=== PATIENT | male | born 1935 | race Caucasian/White ===

== ENCOUNTER 2017-12-10 20:38 | Observation (INO) ==
[2017-12-10 21:31] VITALS: TEMP 97.6
--- NOTE | 2017-12-10 23:08 | ED ---
HPI General Chief complaint: Shortness of Breath/Dyspnea Stated complaint: SOB/Phy sent Time Seen by Provider: 12/10/17 22:28 Source: patient Limitations: no limitations History of Present Illness HPI narrative: The patient is an 82 year old male who presents to the [facility] emergency department with a history of having sudden onset of dyspnea on exertion on Saturday. He reports that it has been associated with fatigue and difficulty getting out of bed throughout the entire weekend up until Saturday. He reports that he is also had associated heartburn sensation and left arm pain. He became concerned that this may be related to his heart, therefore he did call his leasing property manager office. His leasing property manager, Dr. Jorge Alberto Sr told him to immediately go to the emergency department. The patient reports that he has not taken his low-dose aspirin over the last couple of days because of forgetting. He denies having any chest pain. He denies having any nausea or vomiting. He reports having a sensation of being hot all the time, however he denies having any diaphoresis. The patient reports that he does have a history of coronary artery disease, however this is medically managed. He denies ever having a heart catheterization. His last stress test was reportedly 6 months ago. On review of systems otherwise, the patient denies having any known recent fevers, cough, congestion, neck pain, abdominal pain, diarrhea, urinary symptoms, or neurologic symptoms. Related Data Home Medications Medication Instructions Recorded Confirmed amlodipine 5 mg PO DAILY 12/10/17 12/10/17 atorvastatin 40 mg PO DAILY 12/10/17 12/10/17 escitalopram oxalate 5 mg PO DAILY 12/10/17 12/10/17 finasteride 5 mg PO DAILY 12/10/17 12/10/17 isosorbide mononitrate 30 mg PO DAILY 12/10/17 12/10/17 metoprolol succinate 50 mg PO DAILY 12/10/17 12/10/17 tizanidine 4 mg PO TID 12/10/17 12/10/17 Allergies Allergy/AdvReac Type Severity Reaction Status Date / Time No Known Allergies Allergy Verified 12/10/17 21:25 Review of Systems ROS Unobtainable All other systems reviewed negative except as stated in HPI PMFSH History History Provided By: Patient and Family Member Medical History Medical History Back fracture (Acute) CAD (coronary artery disease) (Acute) HTN (hypertension) (Acute) Hypercholesteremia (Acute) Surgical History Surgical History S/P surgical manipulation of ankle joint (Acute) Family History Family History Mother Pancreatic cancer Father Diabetes Social History Social History Second Hand Smoke Exposure: No Smoking Status: Never smoker How Often Do You Have a Drink Containing Alcohol: Monthly or less Recent Travel in [facility] within the Last 8 Weeks: No Recent Out of Country Travel within the Last 8 Weeks: No Exam Const General: cooperative, no acute distress and well developed Nutritional Appearance: well nourished Orientation: alert, awake and oriented x3 HENMT Head: normocephalic and atraumatic Nose: no nasal discharge and no epistaxis Mouth: moist mucous membranes Throat: posterior oropharynx normal and uvula midline Eyes Sclera: normal sclerae Pupils: PERRL Neck Neck: no meningeal signs, trachea midline and no JVD Resp Effort & Inspection: no use of accessory muscles Auscultation: clear to auscultation bilaterally Cardio Rate: regular rate Rhythm: regular rhythm Heart Sounds: no murmurs GI Inspection: non-distended Palpation: soft, no hepatosplenomegaly and nontender Auscultation: normal bowel sounds Back/Spine/Pelvis Back: no CVA tenderness Skin General: dry skin (warm) Neuro General: alert and awake Cranial Nerves: other (No facial asymmetry.) Speech: speech normal Motor: no movement abnormalities noted Extrem General: normal to inspection, no clubbing, no cyanosis and edema (Trace pedal edema.) Laterality: bilaterally Psych Mood: congruent mood Affect: normal affect Judgment: judgment good Course Reevaluation(s) Reevaluation #1: The patient was reexamined and was reportedly feeling improved. The patient was instructed regarding his laboratory results and imaging results. Consultations Consultation #1: The patient's case including history, pertinent physical examination findings, and laboratory studies were discussed with Dr. Eisenberg. It was agreed that the patient would be admitted to the hospitalist service. Initial Documented Vital Signs Temperature 97.6 F 12/10/17 21:26 Pulse Rate 74 12/10/17 21:26 Respiratory Rate 18 12/10/17 21:26 Blood Pressure 197/95 H 12/10/17 21:26 Pulse Oximetry 98 12/10/17 21:26 Last Documented Vital Signs Temperature 97.6 F 12/10/17 21:26 Pulse Rate 68 12/11/17 04:17 Respiratory Rate 16 12/11/17 04:17 Blood Pressure 156/84 H 12/11/17 04:17 Pulse Oximetry 96 12/11/17 04:17 Medical Decision Making MDM Narrative Medical decision making narrative: During the course of the patient's emergency department visit, the patient's history, examination, and differential diagnosis were reviewed with the patient. The patient was placed on a electronic device monitor with oximetry and frequent blood pressure monitoring. The patient had IV access obtained and blood work sent for analysis. A diagnostic workup was started regarding the patient's shortness of breath, fatigue, heartburn symptoms , associated with left arm pain. The patient was initially provided aspirin 324 mg p.o. 1, nitroglycerin sublingual every 5 minutes 3, nitroglycerin 1 inch the chest wall. Laboratory studies are remarkable for a chemistries are remarkable for a white count was noted to be 8.4, platelets 288, monocytes 10, hemoglobin 12.7, PT PTT are unremarkable, CMP is remarkable for a troponin I of less than 0.02, CPK 126 , potassium 3.1 which was supplemented orally, magnesium 1.8, lipase was noted to be elevated at 859, therefore a CT scan of the abdomen and pelvis was ordered to evaluate for further signs of pancreatic inflammation, G a GFR was 65 , BUN 23, BNP is 125, albumin 3.2. A chest x-ray revealed mild streaky opacity at the lung bases most consistent with atelectasis, no definite consolidation, however CT scan of the abdomen and pelvis showed new small bilateral pleural effusions with a mild consolidation in the posterior lung bases. 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 Given the patient's dyspnea on exertion, the infiltrates will be treated with antibiotic. The patient was started on Rocephin 1 g IV, Zithromax 500 IV. The patient will be admitted to the hospitalist service for continued rule out serial cardiac enzyme protocol, consultation with cardiology. The patient's results were discussed with the patient, including the plan of care. I explained that further testing and/ or monitoring is indicated based on the patient's history, examination, and/ or laboratory findings. Therefore, I recommended admission for additional evaluation. The patient expressed understanding and was agreeable with this plan. The patient was admitted to the hospital in guarded condition and sent to a bed under the care of the [facility] service. Differential Diagnosis Differential Diagnosis: Acute coronary syndrome, versus new onset congestive heart failure, versus pneumonia, versus pancreatitis Medical Records Medical records reviewed: Yes I reviewed the patient's medical records. Lab Data Lab results reviewed: Yes I reviewed the patient's lab results. Result diagrams: 12/10/17 22:55 12/10/17 22:55 Lab Results 12/10/17 12/10/17 12/10/17 Range/Units 22:55 22:55 22:55 WBC 8.4 (4.0-11.0) th/mm3 RBC 4.17 L (4.50-5.90) mil/mm3 Hgb 12.7 L (13.0-17.0) gm/dL Hct 36.8 L (39.0-51.0) % MCV 88.3 (80.0-100.0) fL MCH 30.4 (27.0-34.0) pg MCHC 34.4 (32.0-36.0) % RDW 13.2 (11.6-17.2) % Plt Count 288 (150-450) th/mm3 MPV 8.4 (7.0-11.0) fL Neut % (Auto) 62.8 (16.0-70.0) % Lymph % (Auto) 22.1 (9.0-44.0) % [place] % (Auto) 10.0 H (0.0-8.0) % Eos % (Auto) 4.2 H (0.0-4.0) % Baso % (Auto) 0.9 (0.0-2.0) % Neut # (Auto) 5.3 (1.8-7.7) th/mm3 Lymph # (Auto) 1.8 (1.0-4.8) th/mm3 [place] # (Auto) 0.8 (0.0-0.9) th/mm3 Eos # (Auto) 0.4 (0.0-0.4) th/mm3 Baso # (Auto) 0.1 (0.0-0.2) th/mm3 WBC Differential . Differential Comment Auto diff final PT 11.2 (9.8-11.6) sec INR 1.1 Ratio APTT 35.2 H (24.3-30.1) sec Sodium 142 (136-145) meq/L Potassium 3.1 L (3.5-5.1) meq/L Chloride 107 (98-107) meq/L Carbon Dioxide 23.6 (21.0-32.0) meq/L Anion Gap 11 (5-15) meq/L BUN 23 H (7-18) mg/dL Creatinine 1.09 (0.60-1.30) mg/dL Estimated GFR 65 L (>89) mL/min Random Glucose 98 (74-106) mg/dL Calcium 8.8 (8.5-10.1) mg/dL Magnesium 1.8 (1.5-2.5) mg/dL Total Bilirubin 0.5 (0.2-1.0) mg/dL AST 33 (15-37) U/L ALT 45 (12-78) U/L Alkaline Phosphatase 78 (45-117) U/L Total Creatine Kinase 126 (39-308) U/L CK-MB (CK-2) 2.1 (0.5-3.6) ng/mL Troponin I Less than 0.02 L (0.02-0.05) ng/mL B-Natriuretic Peptide (0-100) pg/mL Total Protein 6.9 (6.4-8.2) g/dL Albumin 3.2 L (3.4-5.0) g/dL Lipase 859 H (73-393) U/L 12/10/17 12/11/17 Range/Units 22:55 05:30 WBC (4.0-11.0) th/mm3 RBC (4.50-5.90) mil/mm3 Hgb (13.0-17.0) gm/dL Hct (39.0-51.0) % MCV (80.0-100.0) fL MCH (27.0-34.0) pg MCHC (32.0-36.0) % RDW (11.6-17.2) % Plt Count (150-450) th/mm3 MPV (7.0-11.0) fL Neut % (Auto) (16.0-70.0) % Lymph % (Auto) (9.0-44.0) % [place] % (Auto) (0.0-8.0) % Eos % (Auto) (0.0-4.0) % Baso % (Auto) (0.0-2.0) % Neut # (Auto) (1.8-7.7) th/mm3 Lymph # (Auto) (1.0-4.8) th/mm3 [place] # (Auto) (0.0-0.9) th/mm3 Eos # (Auto) (0.0-0.4) th/mm3 Baso # (Auto) (0.0-0.2) th/mm3 WBC Differential Differential Comment PT (9.8-11.6) sec INR Ratio APTT (24.3-30.1) sec Sodium (136-145) meq/L Potassium (3.5-5.1) meq/L Chloride (98-107) meq/L Carbon Dioxide (21.0-32.0) meq/L Anion Gap (5-15) meq/L BUN (7-18) mg/dL Creatinine (0.60-1.30) mg/dL Estimated GFR (>89) mL/min Random Glucose (74-106) mg/dL Calcium (8.5-10.1) mg/dL Magnesium (1.5-2.5) mg/dL Total Bilirubin (0.2-1.0) mg/dL AST (15-37) U/L ALT (12-78) U/L Alkaline Phosphatase (45-117) U/L Total Creatine Kinase 115 (39-308) U/L CK-MB (CK-2) (0.5-3.6) ng/mL Troponin I 0.02 (0.02-0.05) ng/mL B-Natriuretic Peptide 125 H (0-100) pg/mL Total Protein (6.4-8.2) g/dL Albumin (3.4-5.0) g/dL Lipase (73-393) U/L Imaging Data Radiologist's impression: Chest X-Ray 12/10/17 22:51 CONCLUSION: Mild streaky opacity is now noted at the lung bases most consistent with atelectasis. There is no definite consolidation. Abdomen/Pelvis CT 12/11/17 00:24 CONCLUSION: 1. Nonobstructing right renal calculus again noted with multiple bilateral renal cysts. 2. Mild hepatic steatosis with no focal lesion. 3. Inlet. The bowel with malrotation again noted. There is no inflammatory change or obstruction. 4. New small bilateral pleural effusions. There is mild consolidation in the posterior lung bases. 5. The pancreas remains within normal limits with no inflammatory change. ECG Data Attestation: I personally reviewed and interpreted this ECG as follows: Interpretation: The patient had an EKG done on arrival. The patient's EKG reveals a sinus rhythm heart rate of 62 with occasional supraventricular premature complexes, QRS duration is 104 ms, QTC [address] segment elevation is noted. Discharge Plan Discharge Disposition Patient Disposition: 30 Still Patient Discharge Details Diagnosis: Pleural effusion, Lung infiltrate on CT, Dyspnea on exertion, Elevated lipase Physicians Team ED Provider: Aida Sr Primary Care Provider: Rikki Oseguera Attending Provider: Gennaro Cota Other Providers: Jorge Alberto Sr Discharge Interventions Interventions: Vital Signs Last Done: 12/11/17 01:31 Status ED Status: Admitted Observation Patient
--- NOTE | 2017-12-10 23:13 | XR ---
EXAM DATE: 12/10/2017 11:05 PM EDT AGE/SEX: 82 years / Male INDICATIONS: Chest pain. CLINICAL DATA: This is the patient's initial encounter. Patient reports that signs and symptoms have been present for 2 days and indicates a pain score of 2/10. MEDICAL/SURGICAL HISTORY: Hypertension. None. COMPARISON: POI, XR CHEST PA AND LAT, 03/04/2017. . FINDINGS: A single AP erect portable view of the chest was obtained and demonstrates mild streaky opacity at th e lung bases with no focal consolidation or effusion. The heart size is within normal limits. There a re atherosclerotic changes in the aorta. The bony thorax remains intact and there are overlying elect rocardiogram leads. CONCLUSION: Mild streaky opacity is now noted at the lung bases most consistent with atelectasis. There is no def inite consolidation. Electronically signed by: Carmelo Kam MD 12/10/2017 11:11 PM EDT
[2017-12-10 23:16] LABS: Baso # (Auto) 0.1 th/mm3 (0.0-0.2); Baso % (Auto) 0.9 % (0.0-2.0); Eos # (Auto) 0.4 th/mm3 (0.0-0.4); Eos % (Auto) 4.2 % (0.0-4.0); Hematocrit 36.8 % (39.0-51.0); Hemoglobin 12.7 gm/dL (13.0-17.0); Lymph # (Auto) 1.8 th/mm3 (1.0-4.8); Lymph % (Auto) 22.1 % (9.0-44.0); Mean Corpuscular HGB Conc 34.4 % (32.0-36.0); Mean Corpuscular Hemoglobin 30.4 pg (27.0-34.0); Mean Corpuscular Volume 88.3 fL (80.0-100.0); Mean Platelet Volume 8.4 fL (7.0-11.0); Mono # (Auto) 0.8 th/mm3 (0.0-0.9); Neut # (Auto) 5.3 th/mm3 (1.8-7.7); Neut % (Auto) 62.8 % (16.0-70.0); Platelet Count 288 th/mm3 (150-450); Red Blood Count 4.17 mil/mm3 (4.50-5.90); Red Cell Distribution Width 13.2 % (11.6-17.2); White Blood Count 8.4 th/mm3 (4.0-11.0)
[2017-12-10 23:22] LABS: Activated Partial Thrombo Time 35.2 sec (24.3-30.1); INR 1.1 Ratio; Prothrombin Time 11.2 sec (9.8-11.6)
[2017-12-10 23:55] LABS: Alanine Aminotransferase 45 U/L (12-78); Albumin 3.2 g/dL (3.4-5.0); Anion Gap 11 meq/L (5-15); Aspartate Aminotransferase 33 U/L (15-37); Blood Urea Nitrogen 23 mg/dL (7-18); Calcium 8.8 mg/dL (8.5-10.1); Carbon Dioxide 23.6 meq/L (21.0-32.0); Chloride 107 meq/L (98-107); Glomerular Filtration Rate 65 mL/min (>89); Glucose,Random 98 mg/dL (74-106); Lipase 859 U/L (73-393); Magnesium 1.8 mg/dL (1.5-2.5); Potassium 3.1 meq/L (3.5-5.1); Sodium 142 meq/L (136-145)
[2017-12-10 23:59] LABS: Alkaline Phosphatase 78 U/L (45-117); Creatine Kinase 126 U/L (39-308); Total Protein 6.9 g/dL (6.4-8.2)
[2017-12-11 00:13] LABS: Creatine Kinase MB 2.1 ng/mL (0.5-3.6)
--- NOTE | 2017-12-11 01:47 | CT ---
EXAM DATE: 12/11/2017 1:26 AM EDT AGE/SEX: 82 years / Male INDICATIONS: Epigastric abdominal pain, elevated lipase. History of renal calculi and cysts. History of malrotation of the bowel. CLINICAL DATA: This is the patient's initial encounter. Patient reports that signs and symptoms have been present for 1 day and indicates a pain score of 4/10. MEDICAL/SURGICAL HISTORY: Hypertension. CAD. None. ORAL CONTRAST: No oral contrast ingested. RADIATION DOSE: 8.24 CTDI (mGy) COMPARISON: POI, CT ABDOMEN AND PELVIS W AND W/O CONTRAST, 03/15/2017. . TECHNIQUE: Multiple contiguous axial images were obtained through the abdomen and pelvis following b olus infusion of 100 ml Omnipaque 350 (iohexol) nonionic water-soluble contrast as a single exam do se. No oral contrast ingested. Using automated exposure control and adjustment of the mA and/or kV a ccording to patient size, radiation dose was kept as low as reasonably achievable to obtain optimal d iagnostic quality images. DICOM format image data is available electronically for review and compari son. FINDINGS: Lower Lungs: There are new small bilateral pleural effusions with mild consolidation in the posterior lung bases. Liver: The liver has a homogeneous density without space-occupying lesion. There is no dilation of th e biliary tree. There is mild hepatic steatosis with no focal mass. The gallbladder remains unremarka ble. Spleen: Homogeneous density without enlargement. Pancreas: Unremarkable without mass or calcification. Kidneys: Normal in size and shape. No evidence of a solid mass or hydronephrosis. Bilateral renal cy sts are again noted. There is a nonobstructing right renal calculus measuring approximately 4 to 5 mm in size. Adrenal Glands: Unremarkable. Aorta: Atherosclerotic changes are again noted with dense calcifications. There is no focal aneurys m. Bowel/Mesentery: No oral contrast was given limiting the sensitivity of the exam. The majority of sm all bowel is again noted to be in the right side of the abdomen and the Nicko of the colon is locate d in the left side of the colon consistent with malrotation. There is no inflammatory change or evide nce of obstruction. Abdominal Wall: Intact. Retroperitoneum: No evidence of adenopathy in the retrocrural, para-aortic, or deep pelvic regions. Bladder: Contours are smooth. Reproductive Organs: The prostate gland remains diffusely enlarged with impression on the bladder ba se. Inguinal: The inguinal region is unremarkable without evidence of adenopathy. Bony Structures: Unremarkable. CONCLUSION: 1. Nonobstructing right renal calculus again noted with multiple bilateral renal cysts. 2. Mild hepatic steatosis with no focal lesion. 3. Inlet. The bowel with malrotation again noted. There is no inflammatory change or obstruction. 4. New small bilateral pleural effusions. There is mild consolidation in the posterior lung bases. 5. The pancreas remains within normal limits with no inflammatory change. Electronically signed by: Carmelo Kam MD 12/11/2017 1:46 AM EDT
[2017-12-11] MEDS ORDERED: Azithromycin Inj 500 MG in Sodium Chlor 0.9% Inj 250 ML IV.SIG ONE (02:06)
[2017-12-11] MEDS ORDERED: Bisacodyl 10 MG Supp RECTAL PRN (02:57)
[2017-12-11] MEDS ORDERED: Temazepam 15 MG Capsule PO PRN (02:57)
[2017-12-11] MEDS ORDERED: Sod Chloride 0.9% Inj 1,000 ML IV.CONT SCH (03:00)
--- NOTE | 2017-12-11 04:49 | P.HPIM ---
History of Present Illness Primary Care Physician: Rikki Oseguera MD History of Present Illness: 82-year-old male with a history of CAD, hyperlipidemia who presents with a 3 day history of sudden onset dyspnea on exertion, wheezing. He does report on pain type sensation in left arm, however denies any chest pain. Denies abdominal pain. He reports generalized fatigue, however denies any other symptoms. Denies nausea or vomiting. Patient called his upholsterer outside, Dr. Sr who has advised patient to present to ER. Patient reports that he has had catheterization, as well as stress test in the past which do show ischemia, however continues on medical management without PCI yet. Review of Systems All other systems reviewed negative except as stated in HPI PMFSH - History History Provided By: Patient, Family Member - Medical History Medical History: Medical History (Last Reviewed 12/10/17 @ 23:06 by Aida Sr MD) Back fracture CAD (coronary artery disease) HTN (hypertension) Hypercholesteremia - Surgical History Surgical History: Surgical History (Last Reviewed 12/10/17 @ 23:06 by Aida Sr MD) S/P surgical manipulation of ankle joint - Family History Family History: Family History (Last Updated 12/11/17 @ 04:47 by Ace Eisenberg MD) Mother Pancreatic cancer Father Diabetes - Tobacco History Second Hand Smoke Exposure: No Smoking Status: Never smoker - Alcohol History How Often Do You Have a Drink Containing Alcohol: Monthly or less - Travel History Recent Travel in the [place] Within the Last 8 Weeks: No Recent Travel Out of the Country Within the Last 8 Weeks: No - Immunization History Tetanus Immunization: Unsure Medications and Allergies Active Medications: Active Medications Al Hydroxide/Mg Hydroxide (Milk Of [place] Kennedy) 30 ml PO Q12H PRN PRN Reason: Mild Constipation Amlodipine Besylate (Norvasc) 5 mg PO DAILY [facility] Aspirin (Ecotrin) 81 mg PO DAILY [facility] Atorvastatin Calcium (Lipitor) 40 mg PO DAILY [facility] Bisacodyl (Dulcolax Supp) 10 mg RECTAL DAILY PRN PRN Reason: SEVERE CONSITIPATION Escitalopram Oxalate (Lexapro) 5 mg PO DAILY [facility] Finasteride (Proscar) 5 mg PO DAILY [facility] Ceftriaxone Sodium 1,000 mg/ (Sodium Chloride) 100 mls @ 200 mls/hr IV.SIG Q24H [facility] Last Admin: 12/11/17 04:08 Dose: Not Given Azithromycin 500 mg/ Sodium (Chloride) 250 mls @ 250 mls/hr IV.SIG Q24H [facility] Sodium Chloride (Ns Inj) 1,000 mls @ 50 mls/hr IV.CONT .Q20H [facility] Last Admin: 12/11/17 03:59 Dose: 50 mls/hr Ceftriaxone Sodium 1,000 mg/ (Sodium Chloride) 100 mls @ 200 mls/hr IV.SIG Q24H [facility] Isosorbide Mononitrate (Imdur) 30 mg PO DAILY [facility] Lactulose (Lactulose Liq) 30 ml PO DAILY PRN PRN Reason: SEVERE CONSITIPATION Metoprolol Succinate (Toprol Xl) 50 mg PO DAILY [facility] Senna/Docusate Sodium (Tiff-Colace) 1 tab PO BID [facility] Sennosides (Senokot) 17.2 mg PO Q12H PRN PRN Reason: Moderate Constipation Sodium Chloride (Ns Flush) 2 ml IV.FLUSH BID [facility] Sodium Chloride (Ns Flush) 2 ml IV.FLUSH PRN PRN PRN Reason: FLUSH AFTER USING IV ACCESS Temazepam (Restoril) 15 mg PO HS PRN PRN Reason: INSOMNIA Tizanidine HCl (Zanaflex) 4 mg PO TID [facility] Allergies Allergy/AdvReac Type Severity Reaction Status Date / Time No Known Allergies Allergy Verified 12/10/17 21:25 Home Medications Medication Instructions Recorded Confirmed Type amlodipine 5 mg PO DAILY 12/10/17 12/10/17 History atorvastatin 40 mg PO DAILY 12/10/17 12/10/17 History escitalopram oxalate 5 mg PO DAILY 12/10/17 12/10/17 History finasteride 5 mg PO DAILY 12/10/17 12/10/17 History isosorbide mononitrate 30 mg PO DAILY 12/10/17 12/10/17 History metoprolol succinate 50 mg PO DAILY 12/10/17 12/10/17 History tizanidine 4 mg PO TID 12/10/17 12/10/17 History Exam Vital signs: Vital Signs 12/10/17 21:26 12/10/17 23:08 12/11/17 01:31 Temperature 97.6 F Pulse Rate 74 78 66 Respiratory Rate 18 16 16 Blood Pressure 197/95 H 159/82 H Pulse Oximetry 98 98 98 12/11/17 04:17 Temperature Pulse Rate 68 Respiratory Rate 16 Blood Pressure 156/84 H Pulse Oximetry 96 Intake & Output 12/10/17 12/10/17 12/11/17 06:59 18:59 06:59 Weight 83.915 kg Narrative: GENERAL: Patient sitting up in bed. Appears comfortable. Alert and oriented 3. SKIN: Warm and dry. HEAD: Atraumatic. Normocephalic. EYES: Pupils equal and round. No scleral icterus. No injection or drainage. ENT: No nasal bleeding or discharge. Mucous membranes pink and moist. NECK: Trachea midline. No JVD. CARDIOVASCULAR: Regular rate and rhythm. RESPIRATORY: No accessory muscle use. Expiratory wheezing bilaterally.. Breath sounds equal bilaterally. GASTROINTESTINAL: Abdomen soft, non-tender, nondistended. Hepatic and splenic margins not palpable. MUSCULOSKELETAL: Extremities without clubbing, cyanosis, or edema. No obvious deformities. NEUROLOGICAL: Awake and alert. No obvious cranial nerve deficits. Motor grossly within normal limits. Five out of 5 muscle strength in the arms and legs. Normal speech. PSYCHIATRIC: Appropriate mood and affect; insight and judgment normal. Results - Labs CBC & Chem 7: 12/10/17 22:55 12/10/17 22:55 Labs: Short CBC 12/10/17 Range/Units 22:55 WBC 8.4 (4.0-11.0) th/mm3 Hgb 12.7 L (13.0-17.0) gm/dL Hct 36.8 L (39.0-51.0) % Plt Count 288 (150-450) th/mm3 BMP 12/10/17 22:55 Sodium 142 Potassium 3.1 L Chloride 107 Carbon Dioxide 23.6 BUN 23 H Creatinine 1.09 Calcium 8.8 Cardiac Enzymes 12/10/17 Range/Units 22:55 Total Creatine Kinase 126 (39-308) U/L CK-MB (CK-2) 2.1 (0.5-3.6) ng/mL Troponin I Less than 0.02 L (0.02-0.05) ng/mL Liver Function 12/10/17 Range/Units 22:55 Total Bilirubin 0.5 (0.2-1.0) mg/dL AST 33 (15-37) U/L ALT 45 (12-78) U/L Alkaline Phosphatase 78 (45-117) U/L Albumin 3.2 L (3.4-5.0) g/dL - Imaging Impressions Chest X-Ray 12/10/17 22:51 CONCLUSION: Mild streaky opacity is now noted at the lung bases most consistent with atelectasis. There is no definite consolidation. Abdomen/Pelvis CT 12/11/17 00:24 CONCLUSION: 1. Nonobstructing right renal calculus again noted with multiple bilateral renal cysts. 2. Mild hepatic steatosis with no focal lesion. 3. Inlet. The bowel with malrotation again noted. There is no inflammatory change or obstruction. 4. New small bilateral pleural effusions. There is mild consolidation in the posterior lung bases. 5. The pancreas remains within normal limits with no inflammatory change. Caprini VTE Risk Assessment Caprini VTE Risk Assessment: Moderate/High Risk (score >= 2) Caprini Risk Assessment Model: Point Value = 1 Point Value = 2 Point Value = 3 Point Value = 5 Age 41-60 Minor surgery BMI > 25 kg/m2 Swollen legs Varicose veins or History of unexplained or recurrent spontaneous Oral contraceptives or hormone replacement Sepsis (< 1 month) Serious lung disease, including pneumonia (< 1 month) Abnormal pulmonary function Acute myocardial infarction Congestive heart failure (< 1 month) History of inflammatory bowel disease Medical patient at bed rest Age 61-74 Arthroscopic surgery Major open surgery (> 45 min) Laparoscopic surgery (> 45 min) Malignancy Confined to bed (> 72 hours) Immobilizing plaster cast Central venous access Age >= 75 History of VTE Family history of VTE Factor V Leiden Prothrombin [id number] Lupus anticoagulant Anticardiolipin antibodies Elevated serum homocysteine Heparin-induced thrombocytopenia Other congenital or acquired thrombophilia Stroke (< 1 month) Elective arthroplasty Hip, pelvis, or leg fracture Acute spinal cord injury (< 1 month) Prophylaxis Regimen: Total Risk Factor Score Risk Level Prophylaxis Regimen 0-1 Low Early ambulation 2 Moderate Order ONE of the following: *Sequential Compression Device (SCD) *Heparin 5000 units SQ BID 3-4 Higher Order ONE of the following medications: *Heparin 5000 units SQ TID *Enoxaparin/Lovenox 40 mg SQ daily (WT < 150 kg, CrCl > 30 mL/min) *Enoxaparin/Lovenox 30 mg SQ daily (WT < 150 kg, CrCl > 10-29 mL/min) *Enoxaparin/Lovenox 30 mg SQ BID (WT < 150 kg, CrCl > 30 mL/min) AND/OR *Sequential Compression Device (SCD) 5 or more Highest Order ONE of the following medications: *Heparin 5000 units SQ TID (Preferred with Epidurals) *Enoxaparin/Lovenox 40 mg SQ daily (WT < 150 kg, CrCl > 30 mL/min) *Enoxaparin/Lovenox 30 mg SQ daily (WT < 150 kg, CrCl > 10-29 mL/min) *Enoxaparin/Lovenox 30 mg SQ BID (WT < 150 kg, CrCl > 30 mL/min) AND *Sequential Compression Device (SCD) Assessment and Plan - Plan //Chest pain //History of CAD //History of hypertension = EKG without ST elevation. Troponin negative = Patient reports known history of ischemia without intervention. -Hospital atelectasis versus pneumonia on chest x-ray We will trend EKGs and troponins. Blood pressure acceptable. Continue patient 's home medications consult patient's upholsterer outside. //Elevated lipase. Patient denies any abdominal pain. Denies any back pain. Denies nausea or vomiting. Lipase not 3 times upper limit of normal. Have advised patient to inform primary care doctor of elevated lipase on follow-up. //Suspected pneumonia. Chest x-ray with atelectasis, wheezing on exam Started on antibiotics. ipratropium nebs. Continue to monitor. //Hypokalemia. Replaced in ER. Follow-up labs. Discussed Condition With: Patient, nurse, ED physician, son at bedside
[2017-12-11 06:23] LABS: Troponin I 0.02 ng/mL (0.02-0.05)
[2017-12-11 07:25] VITALS: RESP 18
[2017-12-11] MEDS ORDERED: Isosorbide Mononitrate 60 MG ER 24HR Tablet (Imdur) PO SCH (08:45)
[2017-12-11] MEDS ORDERED: Isosorbide Mononitrate 30 MG ER 24HR Tablet (Imdur) PO SCH ×2 (08:45→09:00)
--- NOTE | 2017-12-11 08:49 | MB ---
cc: Ashok Solorzano MD DATE: 12/11/2017 REASON FOR CONSULTATION: Shortness of breath, history of coronary artery disease. HISTORY OF PRESENT ILLNESS: The patient is an 82-year-old white male with a history of coronary artery disease, borderline diabetes, hyperlipidemia, hypertension, who was in his usual state of health up until 5 days ago when he began to experience fairly severe dyspnea with minimal exertion, as well as severe fatigue. For the next 48 hours, he was mostly in bed. He denies any jose chest pain except for a brief "heartburn" sensation 5 days ago. Chronically, he has fairly constant bilateral upper arm pains which he attributes to "arthritis." He denies lightheadedness, syncope, near syncope, palpitations, pedal edema, paroxysmal nocturnal dyspnea. Since coming into the hospital, his dyspnea has improved. PAST MEDICAL HISTORY: 1. Coronary artery disease with cardiac catheterization 12/09/2013 showing normal left main, 80% complex mid LAD disease at the origin of the second diagonal, 90% posterior descending artery lesion. Because of the complexity of his disease, he was treated medically. The patient is adamantly opposed to open heart surgery. 2. Hyperlipidemia. 3. Hypertension. 4. Sleep apnea. 5. Borderline diabetes. CARDIAC MEDICATIONS AT HOME: 1. Amlodipine 5 mg daily. 2. Imdur 30 mg daily. 3. Metoprolol succinate 50 mg daily. 4. Atorvastatin 40 mg at bedtime. ALLERGIES: NO KNOWN DRUG ALLERGIES. FAMILY HISTORY: Noncontributory. SOCIAL HISTORY: The patient is a former smoker. There is no history of alcohol abuse. REVIEW OF SYSTEMS: As in the history of present illness, otherwise negative or noncontributory. He also denies headache, abdominal pain, melena, dyspepsia, bright red blood per rectum. PHYSICAL EXAMINATION: VITAL SIGNS: His blood pressure 156/84 with a pulse of 64, respirations 18. GENERAL: He is a well-developed, well-nourished white male, in no acute distress. NECK: Jugular venous pressure is normal. Carotid pulses are 2+ bilaterally and without bruits. CHEST: Reveals unlabored respiratory effort with clear lungs fernando. CARDIAC: He has a regular rhythm and rate without S3, S4, or murmur. ABDOMEN: He has a soft, nontender abdomen. Bowel sounds are present. There is no definite hepatosplenomegaly. EXTREMITIES: Reveals no clubbing, cyanosis or edema. Peripheral pulses are normal throughout. EKG shows normal sinus rhythm, normal EKG. Chest x-ray shows bibasilar atelectasis. LABORATORY DATA: Includes hemoglobin 12.7, platelets 288. WBC 8.4. Potassium 3.1, BUN 23, creatinine 1.09. Negative cardiac enzymes. Lipase 859. Brain natriuretic peptide level 125. IMPRESSION: Increased dyspnea in this 82-year-old white male with a history of coronary artery disease, hyperlipidemia, hypertension, borderline diabetes, sleep apnea. The etiology of his dyspnea is not entirely clear. There is no definite evidence for congestive heart failure. His chest x-ray shows no pulmonary edema. Brain natriuretic peptide level is only 125. He has had no definite chest pain symptoms. As noted above, he does have known severe 2 vessel coronary artery disease, which in 2013 was felt not readily amenable to percutaneous intervention. The patient also is adamantly opposed to coronary artery bypass grafting. EKG is normal. Cardiac enzymes are negative for myocardial infarction despite fairly prolonged symptoms of dyspnea 4-5 days ago. RECOMMENDATIONS: 1. As the patient declines surgical intervention for his complex severe vessel coronary artery disease, recommend medical therapy. Recommend increasing the dosing of his isosorbide, Amlodipine, and metoprolol succinate. 2. Daily aspirin. 3. He can be discharged home later today from a cardiac standpoint if he is ambulating without difficulty. He has a followup within the next week with Dr. Jorge Alberto Sr. MD TESS Hinds/BUSHRA , 08:28 AM , 08:37 AM MARY
[2017-12-11] MEDS ORDERED: amLODIPine 10 MG Tablet PO SCH (09:00)
[2017-12-11] MEDS ORDERED: Senna/Docusate Sodium 8.6/50 MG Tablet PO SCH (09:00)
[2017-12-11] MEDS ORDERED: Finasteride 5 MG Tablet PO SCH (09:00)
[2017-12-11] MEDS ORDERED: Escitalopram 10 MG Tablet PO SCH (09:00)
[2017-12-11] MEDS ORDERED: amLODIPine 5 MG Tablet PO SCH (09:00)
[2017-12-11 13:13] LABS: Creatine Kinase 93 U/L (39-308)
[2017-12-11 13:43] VITALS: BP 120/64; PULSE 63; O2SAT 94
--- NOTE | 2017-12-11 16:56 | ECG ---
Date Performed: 12/11/2017 Time Performed: 11:04:10 PTAGE: 82 years EKG: Sinus rhythm WITH OCCASIONAL SUPRAVENTRICULAR PREMATURE COMPLEXES BORDERLINE ECG Since the PREVIOUS TRACING , no significant change noted PREVIOUS TRACIN12/11/2017 05.34 DOCTOR: Juani Acosta Interpretating Date/Time 12/11/2017 16:54:47
--- NOTE | 2017-12-11 17:09 | ECG ---
Date Performed: 12/11/2017 Time Performed: 05:34:16 PTAGE: 82 years EKG: ECTOPIC ATRIAL RHYTHM ABNORMAL RHYTHM ECG Since the PREVIOUS TRACING , no significant change noted PREVIOUS TRACIN12/10/2017 22.45 DOCTOR: Juani Acosta Interpretating Date/Time 12/11/2017 17:09:22
--- NOTE | 2017-12-11 17:16 | ECG ---
Date Performed: 12/10/2017 Time Performed: 22:45:39 PTAGE: 82 years EKG: Sinus rhythm WITH OCCASIONAL SUPRAVENTRICULAR PREMATURE COMPLEXES BORDERLINE ECG Since the PREVIOUS TRACING , no significant change noted PREVIOUS TRACIN12/09/2013 07.14 DOCTOR: Juani Acosta Interpretating Date/Time 12/11/2017 17:15:29
[2017-12-12] MEDS ORDERED: Azithromycin Inj 500 MG in Sodium Chlor 0.9% Inj 250 ML IV.SIG SCH (03:00)
== END 2017-12-11 15:25 | disposition home or self-care (01) ==
LOC: NEPFCDU 20:38 → NEDA 20:38 → NEPE 20:38 → NEPFCDU 12-11 13:57
PROVIDERS: ADMIT Hospitalist; ATTEND Hospitalist

== ENCOUNTER 2017-12-31 05:40 | Inpatient (IN) ==
[~2017-12-31 05:40] MED LIST: Metoprolol Tartrate 25 MG Tablet PO SCH
[2017-12-31] MEDS ORDERED: Heparin - SQ 10,000 UNITS/ML Vial ONE ×2 (06:23)
[2017-12-31] MEDS ORDERED: Insulin Regular (For Infusion) 100 UNIT in Sodium Chlor 0.9% Inj 99 ML IV.CONT PRN ×2 (06:27→11:20)
[2017-12-31] MEDS ORDERED: Dextrose 50% in Water 50 ML Vial IV.PUSH PRN ×2 (06:27→11:20)
[2017-12-31] MEDS ORDERED: Metoprolol Tartrate 25 MG Tablet ONE (06:29)
[2017-12-31] MEDS ORDERED: ceFAZolin 2 GM Premix Inj 2 GM/100 ML BAG IV.SIG ONE (06:29)
[2017-12-31] MEDS ORDERED: Chlorhexidine 4% Topical 120 APPLIC/120 ML Bottle TOPICAL SCH (06:30)
[2017-12-31] MEDS ORDERED: Metoprolol Tartrate 25 MG Tablet PO SCH (06:30)
[2017-12-31] MEDS ORDERED: Chlorhexidine Gluconate 2% 1 Pack (2 Cloths) TOPICAL SCH (06:30)
[2017-12-31] MEDS ORDERED: Sodium Chloride 0.9% Irr Bot 500 ML, ceFAZolin Inj 500 MG IRRIGATION SCH ×2 (06:30)
[2017-12-31] MEDS ORDERED: Sugammadex Inj 200 MG/2 ML Vial IV.PUSH ONE (06:52)
[2017-12-31] MEDS ORDERED: fentaNYL Citrate Inj 1,000 MCG/20 ML Vial ONE (06:52)
[2017-12-31] MEDS ORDERED: ceFAZolin 2 GM Premix Inj 2 GM/100 ML BAG IV.SIG SCH (07:00)
[2017-12-31] MEDS ORDERED: Sodium Chlor 0.9% Inj 500 ML IV.SIG SCH (07:00)
[2017-12-31] MEDS ORDERED: Sodium Chlor 0.9% Inj 77.5 ML, Papaverine Inj 60 MG, Nitroglycerin Inj 100 MCG, dilTIAZ... IRRIGATION SCH ×3 (07:45)
[2017-12-31] MEDS ORDERED: Calcium Chloride Inj 1 GM/10 ML Syringe IV.PUSH PRN (11:20)
[2017-12-31] MEDS ORDERED: RESP: Racemic Epinephrine 2.25% 0.5 ML Neb NEB PRN (11:20)
[2017-12-31] MEDS ORDERED: Post-op Orders (for Pharmacy) OTHER STA (11:20)
[2017-12-31] MEDS ORDERED: Acetaminophen 325 MG Tablet PO PRN (11:20)
[2017-12-31] MEDS ORDERED: Magnesium Sulfate Inj 2 GM in Sodium Chlor 0.9% Inj 96 ML IV.SIG PRN ×4 (11:20)
[2017-12-31] MEDS ORDERED: fentaNYL Citrate Inj 100 MCG/2 ML Ampul IV.PUSH PRN (11:20)
[2017-12-31] MEDS ORDERED: Acetaminophen 650 MG Supp RECTAL PRN (11:20)
[2017-12-31] MEDS ORDERED: Morphine Inj 4 MG/ML Vial IV.PUSH PRN (11:20)
[2017-12-31] MEDS ORDERED: Dexmedetomidine Inj 200 MCG in Sodium Chlor 0.9% Inj 48 ML IV.CONT PRN ×2 (11:20→12:41)
[2017-12-31] MEDS ORDERED: Clevidipine Inj 25 MG/50 ML VIAL IV.CONT PRN (11:20)
[2017-12-31] MEDS ORDERED: Potassium Chlor 20 mEq Premix 20 MEQ/100 ML PIGGYBACK IV.SIG PRN ×2 (11:20)
[2017-12-31] MEDS ORDERED: Albumin Human 5% Inj 250 ML IV.SIG PRN (11:20)
[2017-12-31] MEDS ORDERED: Calcium Chloride Inj 1 GM in Sodium Chlor 0.9% Inj 100 ML IV.SIG PRN (11:20)
[2017-12-31] MEDS ORDERED: Metoprolol Inj 5 MG/5 ML Vial IV.PUSH PRN (11:20)
--- NOTE | 2017-12-31 11:30 | P.OP ---
Date of procedure: 12/31/17 Anesthesia: DOMINGO Surgeon: Jun Carbone MD Operation and Findings: PREPROCEDURE DIAGNOSES 1. Severe Two Vessel Coronary Artery Disease. 2. Stable angina POSTPROCEDURE DIAGNOSES Same SURGICAL PROCEDURE 1. Off-pump Coronary Artery Bypass Grafting x 3 with Left Internal Mammary Artery (LEDBETTER) to Left Anterior Descending (LAD), reverse saphenous vein graft to diagonal 1 branch of the LAD, reverse saphenous vein graft to the diagonal to branch of the LAD 2. Left leg Endoscopic Vein [place] 3. Intraoperative Vein Mapping 4. Lysis of lung adhesions. SURGEON Jun Carbone MD ELECTRICAL INTERN KYREE Denson ANESTHESIA General endotracheal SPRING INSPECTOR GINGER Davila MD PREPARATION ChloraPrep. COUNTS Needle, sponge, and instrument counts were correct. DRAINS Two 32-Sloven[place] mediastinal tubes. COMPLICATIONS None. INDICATIONS FOR PROCEDURE The patient is a 82-year-old gentleman presenting with chest pain. Patient was noted to have 2-vessel coronary artery disease. The patient is being brought to the operating room for surgical revascularization therapy. PROCEDURE Patient was brought to the operating room and placed supine on the OR table. Following the induction of adequate general endotracheal anesthesia and placement of appropriate monitoring devices, intraoperative vein mapping was performed which revealed small but usable-caliber conduit in bilateral lower extremities. The patient was then prepped and draped in standard sterile fashion. Next, 2500 units of intravenous heparin was given. The left greater saphenous vein was harvested endoscopically. This appeared to be a useable- caliber conduit. Simultaneously, a median sternotomy was performed and the left internal mammary artery dissected free off the posterior sternal table. The patient was systemically heparinized and anticoagulation monitored by serial ACT measurements. The internal mammary artery had excellent pulsatile flow in it and was a good-caliber conduit. Of note, there were dense adhesions between the left lung and the chest wall which were sharply divided. The pericardium was then divided in the midline, the cradle created and targets analyzed. At this point, all anastomoses were performed in a beating-heart fashion using the Neotropix stabilizing system. The left internal mammary artery was anastomosed to the mid LAD (2 mm) in an end-to-side fashion using 7-0 Prolene. Segment of saphenous vein graft was then anastomosed to the D1 (2 mm) in an end-to-side fashion using 7-0 Prolene. The final segment was anastomosed to the D2 (2 mm) in an end-to-side fashion using 7-0 Prolene. The proximal anastomoses were then constructed to the ascending aorta in a running manner using 6-0 Prolene. All anastomotic sites were inspected and appeared to be hemostatic and patent. Protamine solution was given. Strict hemostasis was assured. The closure was undertaken. 2 chest tubes were placed. The pericardium was reapproximated in the midline. The sternum was approximated using sternal wires. The muscular and fascial layer were then closed in 3 layers. The endoscopic vein harvest site was closed in 2 layers. The patient tolerated the procedure well and was transferred to CVICU in stable condition.
[2017-12-31] MEDS ORDERED: DOPamine 400 MG/250 ML Premix 400 MG/250 ML BAG IV.CONT ONE ×2 (12:12→12:13)
[2017-12-31] MEDS ORDERED: DOPamine 800 MG/500 ML Premix 800 MG/500 ML PLAST..BAG IV.CONT PRN (12:41)
--- NOTE | 2017-12-31 13:57 | XR ---
EXAM DATE: 12/31/2017 1:16 PM EDT AGE/SEX: 82 years / Male INDICATIONS: Post op cabg. CLINICAL DATA: This is the patient's initial encounter. Patient reports that signs and symptoms have been present for 1 day and indicates a pain score of Nonresponsive. MEDICAL/SURGICAL HISTORY: Hypercholesterolemia. coronary artery disease, dyspnea, hypertension, pneumonia None. COMPARISON: [facility], CHEST 1V SINGLE AP, 12/19/2017. . FINDINGS: Postsurgical features of cardiac surgery. There is an ETT at the vanessa. Right IJ central line with t ip in the proximal right atrium. Mediastinal trying and left apical chest tube. Very subtle left apic al pneumothorax. Minimal patchy bibasal airspace disease. Cardiomediastinal contours are stable. Ramona narciso of the exam is unchanged. CONCLUSION: 1. ETT is at the vanessa. 2. Expected postoperative features of cardiac surgery with remaining lines and tubes as above. 3. Very subtle left apical pneumothorax with left sided chest tube in place. 4. Minimal bibasilar atelectasis. Electronically signed by: Federico Huffman MD 12/31/2017 1:55 PM EDT
--- NOTE | 2017-12-31 14:25 | P.PNCV ---
- Note Subjective/Hospital Course: 82-year-old male, initially seen 12/19/[address] Rikki Oseguera, Dr. Jorge Alberto Sr, has history of chest discomfort, complaining of some shortness of breath, also fatigue. The patient was electively brought in for heart catheterization which showed an ejection fraction of 60%. He had proximal LAD stenosis of 70%, mid-distal LAD 90%, the PDA was 100% with left to right collaterals. PAST MEDICAL HISTORY: Includes coronary artery disease of [place] coronaries, dyspnea on exertion, hyperlipidemia, essential hypertension, sleep apnea, but had declined CPAP in the past. 12/31 pt electively admitted 1. Off-pump Coronary Artery Bypass Grafting x 3 with Left Internal Mammary Artery (LEDBETTER) to Left Anterior Descending (LAD), reverse saphenous vein graft to diagonal 1 branch of the LAD, reverse saphenous vein graft to the diagonal to branch of the LAD 2. Left leg Endoscopic Vein [place] 3. Intraoperative Vein Mapping 4. Lysis of lung adhesions. Objective: Vital Signs - 24 hr 12/31/17 06:30 12/31/17 12:05 12/31/17 12:30 Temperature 97.7 F 96.1 F L Pulse Rate 50 L 40 L Respiratory Rate 20 15 15 Blood Pressure 139/76 139/76 Pulse Oximetry 97 90 L 94 L 12/31/17 12:51 12/31/17 13:55 12/31/17 14:03 Temperature Pulse Rate Respiratory Rate Blood Pressure Pulse Oximetry 95 92 L 92 L Labs: Laboratory Results - last 12 hr 12/31/17 12/31/17 12/31/17 07:00 13:06 13:47 POC Glucose 127 H 156 H Blood Type B Positive Antibody Screen Negative MTS Gel Crossmatch See Detail
--- NOTE | 2017-12-31 14:46 | P.DCO ---
- Diagnosis (1) CAD (coronary artery disease), [place] coronary artery (3) Hyperlipidemia (4) Hypertension - Home Health Nursing Order: Signs/symptoms of disease process, Wound care and dressing changes, Nursing assessment with vital signs - Home Health Aide Instructions: Heart and Vascular Surgery patients *Special attention to sternal dressing Mandatory frequency Assess and evaluation, 4 days in a row The next week 3X week 2 times a week for 4 weeks 1 time a week for 5 weeks Schedule Heart and Vascular patients for full 60 day certification period Initial visit Review Open Heart Surgery Discharge Instructions (Sternal precautions, Activity, Elastic hose, Incision care, Driving, Incentive spirometry, Smoking, [place], Work and other) Need Betadine to paint incision Medication reconciliation Importance of follow up care/ check on appointments Make calendar record temperature daily When to call [facility] nurse, review instructions, phone list Incentive Spirometry, demonstration Visit 1- Begin discharge instruction for patient family and/ or caregiver using teach back method- Signs and symptoms of infection Disease characteristics Medicines and side effects Foods and nutrition/ appetite Infection control/ hand washing/ hygiene Visit 2- Continue teaching Discharge instructions- include additional information on smoking cessation , sternal dressing (sternal vac) Visit 3- Continue teaching- Cough and deep breathing, incision monitoring. Choose my plate Visit 4- Continue teaching- Discuss limitations Discuss how they are feeling Discuss progress toward goals Remaining visits- continue teaching and monitoring For any questions please call : Saturday 8am-5pm Heart & Vascular Surgery Office ( Dr. Carbone & Dr. Bustos), After Hours / Nights (5pm -8am) Weekends and Holidays Please call [facility] Cardiac Intermediate [facility] Unit (CIC) Charge Nurse Single Use Negative Wound Therapy System Caregiver Instruction Sheet 1. A Prevena dressing system was applied to the chest incision during surgery , to promote wound healing. It works via a suction device (negative pressure wound therapy) to remove low to moderate levels of exudate (drainage) and infectious materials. We recommend that the device stay in place for up to seven days, from day of surgery. 2. Day of Surgery___/ Day of Removal ___/ 3. The dressing should only be removed by a health care program resident. Please arrange removal of device to coincide with Home Health visit and or with Nursing staff at Rehab 4. If skin reddening or irritation of skin occurs, or excessive drainage, please notify the Cardiovascular Surgeons office at [phone]. 5. Light showering is permissible; however the pump should be disconnected and placed in safe location, where it will not get wet. The dressing should not be exposed to direct spray or submerged in water. No bath tub / shower only. Ensure the end of the tubing attached to the dressing is facing down so that water does not enter the top of the tube. 6. To remove Prevena dressing: press purple button to turn off device / remove the suction. Then disconnect the tubing from the pump. The fixation strips should be stretched away from the skin and the dressing lifted at one corner and peeled back until it has been fully removed. 7. After removal, it is ok to shower daily using liquid dial soap and clean wash cloth, rinse and pat dry, and leave incision open to air dry. For any concerns regarding Prevena dressing, and or wounds, please contact Rosamaria Mcrae, patient navigator at [phone] or notify the Cardiovascular Surgeons office at [phone]. - Certification I have seen patient Rico Grant on 12/31/17. My clinical findings support the need for the requested home health care services because: Deconditioned with increased weakness I certify that my clinical findings support that this patient is homebound because: Post-op weakness (1) CAD (coronary artery disease), [place] coronary artery Qualifiers: [place] vs. transplanted heart: [place] heart (3) Hyperlipidemia Qualifiers: Hyperlipidemia type: mixed hyperlipidemia Qualified Code(s): E78.2 - Mixed hyperlipidemia (4) Hypertension Qualifiers: Hypertension type: essential hypertension Qualified Code(s): I10 - Essential (primary) hypertension
[2017-12-31] MEDS: Potassium Chlor 20 mEq Premix 20 MEQ/100 ML PIGGYBACK IV.SIG PRN ×2 (16:01→21:04)
[2017-12-31] MEDS: ceFAZolin Inj 2,000 MG in Sodium Chlor 0.9% Inj 80 ML IV.SIG SCH (16:25)
[2017-12-31] MEDS ORDERED: Phenylephrine/NS 1000 MCG/10ML Syringe IV.PUSH ONE (16:49)
[2017-12-31] MEDS ORDERED: Sodium Chlor 0.9% Inj 500 ML IV.SIG ONE (16:49)
[2017-12-31] MEDS ORDERED: Heparin - SQ 10,000 UNITS/ML Vial SQ ONE (16:49)
[2017-12-31] MEDS ORDERED: Glycopyrrolate 0.2 MG/ML Vial IV.PUSH ONE (16:49)
[2017-12-31] MEDS ORDERED: Dexmedetomidine Inj 200 MCG/2 ML Vial IV.CONT ONE (16:49)
[2017-12-31] MEDS ORDERED: Artificial Tears Opth Oint 3.5 GM Tube EACH EYE ONE (16:49)
[2017-12-31] MEDS ORDERED: Sodium Chlor 0.9% Inj 250 ML IV.SIG ONE (16:49)
[2017-12-31] MEDS ORDERED: Sodium Chlor 0.9% Inj 100 ML IV.SIG ONE (16:49)
[2017-12-31] MEDS ORDERED: Protamine Sulfate Inj 250 MG/25 ML Vial IV.CONT ONE (16:49)
[2018-01-01] MEDS: ceFAZolin Inj 2,000 MG in Sodium Chlor 0.9% Inj 80 ML IV.SIG SCH ×4 (01:14→23:09)
[2018-01-01] MEDS: Potassium Chlor 20 mEq Premix 20 MEQ/100 ML PIGGYBACK IV.SIG PRN (02:17)
[2018-01-01 04:54] LABS: Hematocrit 33.9 % (39.0-51.0); Hemoglobin 11.5 gm/dL (13.0-17.0); Mean Corpuscular HGB Conc 33.9 % (32.0-36.0); Mean Corpuscular Volume 88.5 fL (80.0-100.0); Platelet Count 229 th/mm3 (150-450); Red Blood Count 3.83 mil/mm3 (4.50-5.90); White Blood Count 11.7 th/mm3 (4.0-11.0)
[2018-01-01 05:16] LABS: Calcium 8.2 mg/dL (8.5-10.1); Carbon Dioxide 22.6 meq/L (21.0-32.0); Magnesium 1.8 mg/dL (1.5-2.5); Potassium 4.3 meq/L (3.5-5.1)
--- NOTE | 2018-01-01 05:25 | XR ---
EXAM DATE: 01/01/2018 5:07 AM EDT AGE/SEX: 82 years / Male INDICATIONS: Post CABG. CLINICAL DATA: This is the patient's subsequent encounter. Patient reports that signs and symptoms h ave been present for 2 days and indicates a pain score of Nonresponsive. MEDICAL/SURGICAL HISTORY: . Hypercholesterolemia. Coronary artery disease, dyspnea, hypertensio n, pneumonia None. COMPARISON: [facility] [place], CHEST 1V SINGLE AP, 12/31/2017. . FINDINGS: A single AP view of the chest demonstrates interval extubation and removal of the nasogastric tube. T he 2 thoracostomy tubes and right-sided central line remain. No pneumothorax. An area of consolidatio n is seen within the medial left lung base is more pronounced from the prior study. No effusion. Righ t lung is clear. Heart is normal in size. Median sternotomy wires noted. 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 CONCLUSION: Worsening consolidation within the left base. Electronically signed by: Mikie Quach MD 01/01/2018 5:24 AM EDT
[2018-01-01] MEDS ORDERED: Bisacodyl 10 MG Supp RECTAL PRN (08:50)
[2018-01-01] MEDS ORDERED: Dextrose 50% in Water 50 ML Vial IV.PUSH PRN (08:50)
[2018-01-01] MEDS ORDERED: Sod Phosphate/Sod Biphosphate (Adult) Enema 133 ML Bottle RECTAL PRN (08:50)
--- NOTE | 2018-01-01 08:57 | P.PNCV ---
- Note Subjective/Hospital Course: 82-year-old male, initially seen 12/19/[address] Rikki Oseguera, Dr. Jorge Alberto Sr, has history of chest discomfort, complaining of some shortness of breath, also fatigue. The patient was electively brought in for heart catheterization which showed an ejection fraction of 60%. He had proximal LAD stenosis of 70%, mid-distal LAD 90%, the PDA was 100% with left to right collaterals. PAST MEDICAL HISTORY: Includes coronary artery disease of [place] coronaries, dyspnea on exertion, hyperlipidemia, essential hypertension, sleep apnea, but had declined CPAP in the past. 12/31 pt electively admitted 1. Off-pump Coronary Artery Bypass Grafting x 3 with Left Internal Mammary Artery (LEDBETTER) to Left Anterior Descending (LAD), reverse saphenous vein graft to diagonal 1 branch of the LAD, reverse saphenous vein graft to the diagonal to branch of the LAD 2. Left leg Endoscopic Vein [place] 3. Intraoperative Vein Mapping 4. Lysis of lung adhesions. extubated after surgery crystalloid 3000cc, 100cc EBL 01/01 pt has some bradycardia last pm , also some hypotension requiring Dopamine BB , amiodarone dc , HR now 60's . currently weaned off dopamine on nasal cannula 6 liters needs aggressive pulm toileting eval for transfer to stepdown later today Objective: Vital Signs - 24 hr 12/31/17 12:05 12/31/17 12:30 12/31/17 12:51 Temperature 96.1 F L Pulse Rate 40 L Respiratory Rate 15 15 Blood Pressure 139/76 Pulse Oximetry 90 L 94 L 95 12/31/17 13:55 12/31/17 14:03 12/31/17 14:37 Temperature Pulse Rate Respiratory Rate 18 Blood Pressure Pulse Oximetry 92 L 92 L 12/31/17 15:51 12/31/17 16:09 12/31/17 17:04 Temperature 97 F L Pulse Rate 66 64 Respiratory Rate 18 18 20 Blood Pressure 128/55 L Pulse Oximetry 94 L 12/31/17 20:00 12/31/17 21:36 12/31/17 23:39 Temperature 97.5 F L 97.5 F L Pulse Rate 67 63 64 Respiratory Rate 16 20 16 Blood Pressure 137/59 L 121/57 L Pulse Oximetry 94 L 97 97 12/31/17 23:41 01/01/18 03:00 01/01/18 03:22 Temperature 98.0 F Pulse Rate 63 54 L 54 L Respiratory Rate 16 18 Blood Pressure 107/60 Pulse Oximetry 95 01/01/18 05:00 01/01/18 07:00 Temperature 98.6 F Pulse Rate 66 Respiratory Rate 18 Blood Pressure 133/52 L Pulse Oximetry 95 91 L GENERAL: A&O SKIN: Warm and dry. Prevena dressing to chest , [place] wrap to left leg HEAD: Normocephalic. EYES: No scleral icterus. No injection or drainage. NECK: Supple, trachea midline. No JVD or lymphadenopathy. CARDIOVASCULAR: Regular rate and rhythm without murmurs, gallops, or rubs. RESPIRATORY: Breath sounds equal bilaterally. No accessory muscle use. diminished in bases / chest tube no air leak / drained 140cc/ 12 hrs GASTROINTESTINAL: Abdomen soft, non-tender, nondistended. MUSCULOSKELETAL: No cyanosis, or edema. BACK: Nontender without obvious deformity. No CVA tenderness. Labs: Laboratory Results - last 12 hr 12/31/17 01/01/18 01/01/18 22:11 00:04 04:35 WBC 11.7 H RBC 3.83 L Hgb 11.5 L Hct 33.9 L MCV 88.5 MCH 30.0 MCHC 33.9 RDW 13.0 Plt Count 229 D MPV 8.0 Sodium Potassium Chloride Carbon Dioxide Anion Gap BUN Creatinine Estimated GFR POC Glucose 87 121 H Random Glucose Calcium Magnesium 01/01/18 01/01/18 01/01/18 04:35 06:05 07:30 WBC RBC Hgb Hct MCV MCH MCHC RDW Plt Count MPV Sodium 141 Potassium 4.3 Chloride 108 H Carbon Dioxide 22.6 Anion Gap 10 BUN 16 Creatinine 0.93 Estimated GFR 78 L POC Glucose 143 H 126 H Random Glucose 105 Calcium 8.2 L Magnesium 1.8 01/01/18 08:15 WBC RBC Hgb Hct MCV MCH MCHC RDW Plt Count MPV Sodium Potassium Chloride Carbon Dioxide Anion Gap BUN Creatinine Estimated GFR POC Glucose 102 Random Glucose Calcium Magnesium Result Diagrams: 01/01/18 04:35 01/01/18 04:35 Telemetry: SB - Plan (1) CAD (coronary artery disease), [place] coronary artery (2) S/P CABG x 3 Plan: ASA, statin , plavix no amiodarone or BB 2/2 bradycardia pulm toileting OOB/ ambulate (3) Hyperlipidemia Plan: on statin (4) Hypertension Plan: hold Norvasc for now (1) CAD (coronary artery disease), [place] coronary artery Qualifiers: [place] vs. transplanted heart: [place] heart (3) Hyperlipidemia Qualifiers: Hyperlipidemia type: mixed hyperlipidemia Qualified Code(s): E78.2 - Mixed hyperlipidemia (4) Hypertension Qualifiers: Hypertension type: essential hypertension Qualified Code(s): I10 - Essential (primary) hypertension
[2018-01-01] MEDS ORDERED: amLODIPine 10 MG Tablet PO SCH (09:00)
[2018-01-01] MEDS ORDERED: Amiodarone 200 MG Tablet PO SCH (09:00)
[2018-01-01] MEDS: Multivitamin/Minerals Therapeutic Tablet PO SCH (09:41)
[2018-01-01] MEDS: Hydroxychloroquine 200 MG Tablet PO SCH (09:41)
[2018-01-01] MEDS: Finasteride 5 MG Tablet PO SCH (09:41)
--- NOTE | 2018-01-01 10:44 | P.DIET ---
Nutritional Evaluation Screening comments: MDC for diet education s/p CABG x 3 0n (12/31) received. Patient Navigator to provide education. Consult RD if compexities with diet education arise. Geriatric Screen for Surgery received: pt presents with a BMI of 27.9. He has been advanced to a Heart Healthy diet post surgery and ate 75% of his breakfast. Pt is not at high nutrition risk.
[2018-01-01] MEDS: Insulin NovoLOG Aspart Correctional Sugar Inj SQ SCH ×4 (11:07→23:09)
[2018-01-01] MEDS: Melatonin 5 MG Tablet PO PRN (20:59)
[2018-01-01] MEDS: LORazepam 0.5 MG Tablet PO PRN (20:59)
--- NOTE | 2018-01-01 21:40 | ECG ---
Date Performed: 01/01/2018 Time Performed: 03:24:42 PTAGE: 82 years EKG: Sinus bradycardia with borderline 1st degree A-V block Possible inferior infarct - age unde termined Abnormal ECG PREVIOUS TRACING : 12/19/2017 06.36 Compared to previous tracing, now with 1st degree AV block DOCTOR: Jhoan Mixon Interpretating Date/Time 01/01/2018 21:38:32
[2018-01-01] MEDS: Docusate Sodium 100 MG Capsule PO SCH (22:16)
[2018-01-01] MEDS ORDERED: Amiodarone Inj 150 MG in Dextrose 5% in Water Inj 97 ML IV.SIG ONE ×2 (23:52)
[2018-01-02] MEDS: Insulin NovoLOG Aspart Correctional Sugar Inj SQ SCH ×5 (02:53→20:16)
[2018-01-02 05:20] LABS: Baso % (Auto) 0.1 % (0.0-2.0); Eos % (Auto) 0.1 % (0.0-4.0); Hematocrit 32.8 % (39.0-51.0); Lymph # (Auto) 0.9 th/mm3 (1.0-4.8); Lymph % (Auto) 6.1 % (9.0-44.0); Mean Corpuscular HGB Conc 33.5 % (32.0-36.0); Mean Corpuscular Hemoglobin 30.2 pg (27.0-34.0); Mean Corpuscular Volume 89.9 fL (80.0-100.0); Mean Platelet Volume 8.4 fL (7.0-11.0); Mono # (Auto) 1.2 th/mm3 (0.0-0.9); Mono % (Auto) 8.5 % (0.0-8.0); Neut # (Auto) 12.1 th/mm3 (1.8-7.7); Neut % (Auto) 85.2 % (16.0-70.0); Platelet Count 201 th/mm3 (150-450); Red Blood Count 3.64 mil/mm3 (4.50-5.90); Red Cell Distribution Width 13.9 % (11.6-17.2); White Blood Count 14.2 th/mm3 (4.0-11.0)
[2018-01-02 05:50] LABS: Carbon Dioxide 25.7 meq/L (21.0-32.0); Magnesium 2.2 mg/dL (1.5-2.5); Potassium 3.9 meq/L (3.5-5.1)
[2018-01-02] MEDS: Hydroxychloroquine 200 MG Tablet PO SCH (08:32)
[2018-01-02] MEDS: Multivitamin/Minerals Therapeutic Tablet PO SCH (08:32)
[2018-01-02] MEDS: Docusate Sodium 100 MG Capsule PO SCH ×2 (08:34→20:18)
[2018-01-02] MEDS: Finasteride 5 MG Tablet PO SCH (08:34)
[2018-01-02] MEDS: Polyethylene Glycol 3350 17 GM Packet PO SCH (08:34)
[2018-01-02] MEDS ORDERED: Metoprolol Tartrate 25 MG Tablet PO SCH (09:30)
--- NOTE | 2018-01-02 15:08 | P.PNCV ---
- Note Subjective/Hospital Course: 82-year-old male, initially seen 12/19/[address] Rikki Oseguera, Dr. Jorge Alberto Sr, has history of chest discomfort, complaining of some shortness of breath, also fatigue. The patient was electively brought in for heart catheterization which showed an ejection fraction of 60%. He had proximal LAD stenosis of 70%, mid-distal LAD 90%, the PDA was 100% with left to right collaterals. PAST MEDICAL HISTORY: Includes coronary artery disease of [place] coronaries, dyspnea on exertion, hyperlipidemia, essential hypertension, sleep apnea, but had declined CPAP in the past. 12/31 pt electively admitted 1. Off-pump Coronary Artery Bypass Grafting x 3 with Left Internal Mammary Artery (LEDBETTER) to Left Anterior Descending (LAD), reverse saphenous vein graft to diagonal 1 branch of the LAD, reverse saphenous vein graft to the diagonal to branch of the LAD 2. Left leg Endoscopic Vein [place] 3. Intraoperative Vein Mapping 4. Lysis of lung adhesions. extubated after surgery crystalloid 3000cc, 100cc EBL 01/01 pt has some bradycardia last pm , also some hypotension requiring Dopamine BB , amiodarone dc , HR now 60's . currently weaned off dopamine on nasal cannula 6 liters needs aggressive pulm toileting eval for transfer to stepdown later today 01/02 pt went into Afib RVR last night / now back in NSR amio gtt/ will change to po K+ replaced, still on 4 liters 02 chest tube dc without difficulty some leukocytosis / continue pulm toileting gentle diuresis Objective: Vital Signs - 24 hr 01/01/18 16:00 01/01/18 17:00 01/01/18 19:00 Temperature 98.6 F Pulse Rate 79 82 Respiratory Rate 18 Blood Pressure 135/60 Pulse Oximetry 93 L 93 L 01/01/18 19:30 01/01/18 20:00 01/01/18 21:00 Temperature 98.6 F Pulse Rate 82 86 82 Respiratory Rate 18 Blood Pressure 157/70 H Pulse Oximetry 92 L 95 01/01/18 21:11 01/01/18 21:30 01/01/18 22:30 Temperature Pulse Rate 88 128 H Respiratory Rate 16 Blood Pressure Pulse Oximetry 94 L 93 L 01/01/18 23:00 01/01/18 23:15 01/01/18 23:58 Temperature 98.7 F Pulse Rate 110 H 97 H Respiratory Rate 21 19 Blood Pressure 127/72 Pulse Oximetry 94 L 01/02/18 00:00 01/02/18 01:17 01/02/18 01:46 Temperature Pulse Rate 116 H 120 H Respiratory Rate Blood Pressure Pulse Oximetry 94 L 01/02/18 02:00 01/02/18 03:30 01/02/18 03:32 Temperature 98.4 F Pulse Rate 110 H 105 H 124 H Respiratory Rate 20 Blood Pressure 123/58 L Pulse Oximetry 95 01/02/18 04:17 01/02/18 05:12 01/02/18 06:35 Temperature Pulse Rate 108 H 90 98 H Respiratory Rate Blood Pressure Pulse Oximetry 01/02/18 07:00 01/02/18 08:00 01/02/18 08:02 Temperature 97.8 F Pulse Rate 91 H 100 H 91 H Respiratory Rate 16 14 Blood Pressure 125/75 Pulse Oximetry 94 L 98 01/02/18 09:00 01/02/18 10:00 01/02/18 11:00 Temperature 97.5 F L Pulse Rate 101 H 82 96 H Respiratory Rate 16 Blood Pressure 161/87 H Pulse Oximetry 94 L 93 L 01/02/18 12:00 01/02/18 13:00 01/02/18 13:48 Temperature Pulse Rate 82 83 80 Respiratory Rate 15 Blood Pressure 144/68 H Pulse Oximetry 94 L GENERAL: A&O x 3 SKIN: Warm and dry. prevena dressing to chest incision intact to left leg HEAD: Normocephalic. EYES: No scleral icterus. No injection or drainage. NECK: Supple, trachea midline. No JVD or lymphadenopathy. CARDIOVASCULAR: Regular rate and rhythm without murmurs, gallops, or rubs. RESPIRATORY: Breath sounds equal bilaterally. No accessory muscle use. diminished in bases , faint crackles GASTROINTESTINAL: Abdomen soft, non-tender, nondistended. MUSCULOSKELETAL: No cyanosis, or edema. BACK: Nontender without obvious deformity. No CVA tenderness. Labs: Laboratory Results - last 12 hr 01/02/18 01/02/18 01/02/18 04:41 04:41 06:01 WBC 14.2 H RBC 3.64 L Hgb 11.0 L Hct 32.8 L MCV 89.9 MCH 30.2 MCHC 33.5 RDW 13.9 Plt Count 201 MPV 8.4 Neut % (Auto) 85.2 H Lymph % (Auto) 6.1 L [place] % (Auto) 8.5 H Eos % (Auto) 0.1 Baso % (Auto) 0.1 Neut # (Auto) 12.1 H Lymph # (Auto) 0.9 L [place] # (Auto) 1.2 H Eos # (Auto) 0.0 Baso # (Auto) 0.0 WBC Differential . Differential Comment Auto diff final Sodium 139 Potassium 3.9 Chloride 105 Carbon Dioxide 25.7 Anion Gap 8 BUN 13 Creatinine 0.93 Estimated GFR 78 L POC Glucose 125 H Random Glucose 124 H Calcium 9.0 D Magnesium 2.2 01/02/18 11:47 WBC RBC Hgb Hct MCV MCH MCHC RDW Plt Count MPV Neut % (Auto) Lymph % (Auto) [place] % (Auto) Eos % (Auto) Baso % (Auto) Neut # (Auto) Lymph # (Auto) [place] # (Auto) Eos # (Auto) Baso # (Auto) WBC Differential Differential Comment Sodium Potassium Chloride Carbon Dioxide Anion Gap BUN Creatinine Estimated GFR POC Glucose 157 H Random Glucose Calcium Magnesium Result Diagrams: 01/02/18 04:41 01/02/18 04:41 Telemetry: Afib> NSR - Plan (1) CAD (coronary artery disease), [place] coronary artery (2) S/P CABG x 3 Plan: ASA, statin , plavix amiodarone and BB pulm toileting OOB/ ambulate chest tube dc without difficulty (3) Hyperlipidemia Plan: on statin (4) Hypertension Plan: hold [facility] for now (1) CAD (coronary artery disease), [place] coronary artery Qualifiers: [place] vs. transplanted heart: [place] heart (3) Hyperlipidemia Qualifiers: Hyperlipidemia type: mixed hyperlipidemia Qualified Code(s): E78.2 - Mixed hyperlipidemia (4) Hypertension Qualifiers: Hypertension type: essential hypertension Qualified Code(s): I10 - Essential (primary) hypertension
--- NOTE | 2018-01-02 15:17 | ECG ---
Date Performed: 01/01/2018 Time Performed: 23:20:40 PTAGE: 82 years EKG: Atrial fibrillation with rapid ventricular response with frequent multifocal PVCs or aberra nt ventricular conduction. Inferior/lateral T wave changes are nonspecific Compared to previous slava ng, atrial fibrillation and ventricular ectopy are new Clinical correlation is strongly recommended A bnormal ECG NO PREVIOUS TRACING DOCTOR: Ranjit Yo Interpretating Date/Time 01/02/2018 15:16:48
[2018-01-02] MEDS: Amiodarone 200 MG Tablet PO SCH ×2 (15:37→20:15)
[2018-01-02] MEDS: Metoprolol Tartrate 25 MG Tablet PO SCH ×2 (15:38→20:15)
[2018-01-02] MEDS: Melatonin 5 MG Tablet PO PRN (20:16)
[2018-01-03 04:10] LABS: Hematocrit 32.3 % (39.0-51.0); Hemoglobin 11.1 gm/dL (13.0-17.0); Mean Corpuscular HGB Conc 34.3 % (32.0-36.0); Mean Corpuscular Hemoglobin 30.6 pg (27.0-34.0); Mean Corpuscular Volume 89.3 fL (80.0-100.0); Mean Platelet Volume 8.6 fL (7.0-11.0); Platelet Count 204 th/mm3 (150-450); Red Blood Count 3.62 mil/mm3 (4.50-5.90); Red Cell Distribution Width 13.6 % (11.6-17.2); White Blood Count 13.7 th/mm3 (4.0-11.0)
[2018-01-03 04:31] LABS: Calcium 8.5 mg/dL (8.5-10.1); Carbon Dioxide 27.5 meq/L (21.0-32.0); Magnesium 2.1 mg/dL (1.5-2.5); Potassium 3.8 meq/L (3.5-5.1)
--- NOTE | 2018-01-03 04:44 | XR ---
EXAM DATE: 01/03/2018 4:27 AM EDT AGE/SEX: 82 years / Male INDICATIONS: Chest tube removal. Evaluate for pneumothorax. CLINICAL DATA: This is the patient's subsequent encounter. Patient reports that signs and symptoms h ave been present for 2 days and indicates a pain score of 0/10. MEDICAL/SURGICAL HISTORY: Hypercholesterolemia. Coronary artery disease. CABG. COMPARISON: [facility] – [place], CHEST 1V SINGLE AP, 01/01/2018. . FINDINGS: A single AP view of the chest demonstrates continued worsening airspace consolidation in the left bas e. Minimal atelectasis or scarring in the right midlung laterally. Heart size is normal. Intact media n sternotomy wires. Right IJ central venous catheter is unchanged in position. Mediastinal drain and left-sided thoracostomy tube of both been removed. No pneumothorax. Degenerativ e changes in both shoulders CONCLUSION: 1. Interval removal of the left-sided thoracostomy tube and mediastinal drain. No pneumothorax. 2. Persistent left basilar airspace consolidation appears slightly worse when compared to the prior. 3. Degenerative changes in both shoulders. Electronically signed by: Samuel Berman MD 01/03/2018 4:43 AM EDT
[2018-01-03] MEDS: Docusate Sodium 100 MG Capsule PO SCH ×2 (09:16→21:26)
[2018-01-03] MEDS: Hydroxychloroquine 200 MG Tablet PO SCH (09:17)
[2018-01-03] MEDS: Amiodarone 200 MG Tablet PO SCH ×2 (09:17→21:26)
[2018-01-03] MEDS: Finasteride 5 MG Tablet PO SCH (09:18)
[2018-01-03] MEDS: Metoprolol Tartrate 25 MG Tablet PO SCH ×2 (09:18→21:25)
[2018-01-03] MEDS: Multivitamin/Minerals Therapeutic Tablet PO SCH (09:18)
[2018-01-03] MEDS: Insulin NovoLOG Aspart Correctional Sugar Inj SQ SCH ×3 (11:57→21:31)
--- NOTE | 2018-01-03 14:11 | P.PNCV ---
- Note Subjective/Hospital Course: 82-year-old male, initially seen 12/19/[address] Rikki Oseguera, Dr. Jorge Alberto Sr, has history of chest discomfort, complaining of some shortness of breath, also fatigue. The patient was electively brought in for heart catheterization which showed an ejection fraction of 60%. He had proximal LAD stenosis of 70%, mid-distal LAD 90%, the PDA was 100% with left to right collaterals. PAST MEDICAL HISTORY: Includes coronary artery disease of [place] coronaries, dyspnea on exertion, hyperlipidemia, essential hypertension, sleep apnea, but had declined CPAP in the past. 12/31 pt electively admitted 1. Off-pump Coronary Artery Bypass Grafting x 3 with Left Internal Mammary Artery (LEDBETTER) to Left Anterior Descending (LAD), reverse saphenous vein graft to diagonal 1 branch of the LAD, reverse saphenous vein graft to the diagonal to branch of the LAD 2. Left leg Endoscopic Vein [place] 3. Intraoperative Vein Mapping 4. Lysis of lung adhesions. extubated after surgery crystalloid 3000cc, 100cc EBL 01/01 pt has some bradycardia last pm , also some hypotension requiring Dopamine BB , amiodarone dc , HR now 60's . currently weaned off dopamine on nasal cannula 6 liters needs aggressive pulm toileting eval for transfer to stepdown later today 01/02 pt went into Afib RVR last night / now back in NSR amio gtt/ will change to po K+ replaced, still on 4 liters 02 chest tube dc without difficulty some leukocytosis / continue pulm toileting gentle diuresis 01/03 Clinically and hemodynamically doing well On room air Recurrent atrial fibrillation. Will rebolus with amiodarone and 24 hour drip May need Coumadin if atrial fibrillation persists Discharge planning Objective: Vital Signs - 24 hr 01/02/18 15:00 01/02/18 16:00 01/02/18 17:00 Temperature 97.4 F L Pulse Rate 98 H 85 92 H Respiratory Rate 16 Blood Pressure 136/82 Pulse Oximetry 93 L 93 L 01/02/18 18:00 01/02/18 19:00 01/02/18 19:10 Temperature 98.2 F Pulse Rate 94 H 96 H 103 H Respiratory Rate 18 Blood Pressure 137/76 Pulse Oximetry 93 L 01/02/18 19:26 01/02/18 20:00 01/02/18 20:15 Temperature Pulse Rate 93 H 98 H Respiratory Rate 18 Blood Pressure Pulse Oximetry 95 93 L 01/02/18 21:00 01/02/18 22:00 01/02/18 23:10 Temperature Pulse Rate 107 H 95 H 94 H Respiratory Rate Blood Pressure Pulse Oximetry 01/02/18 23:15 01/03/18 00:00 01/03/18 01:06 Temperature 98.5 F Pulse Rate 83 89 93 H Respiratory Rate 19 Blood Pressure 134/72 Pulse Oximetry 92 L 01/03/18 02:05 01/03/18 02:06 01/03/18 03:10 Temperature 98.4 F Pulse Rate 91 H 100 H Respiratory Rate 20 20 Blood Pressure 133/81 Pulse Oximetry 92 L 01/03/18 04:40 01/03/18 05:07 01/03/18 06:43 Temperature Pulse Rate 92 H 90 98 H Respiratory Rate Blood Pressure Pulse Oximetry 01/03/18 07:30 01/03/18 08:00 01/03/18 11:00 Temperature 97.6 F 98.3 F Pulse Rate 73 116 H 97 H Respiratory Rate 16 14 16 Blood Pressure 136/85 122/76 Pulse Oximetry 93 L 96 92 L Labs: Laboratory Results - last 12 hr 12/31/17 01/03/18 01/03/18 07:00 03:48 03:48 WBC 13.7 H RBC 3.62 L Hgb 11.1 L Hct 32.3 L MCV 89.3 MCH 30.6 MCHC 34.3 RDW 13.6 Plt Count 204 MPV 8.6 Sodium 139 Potassium 3.8 Chloride 104 Carbon Dioxide 27.5 Anion Gap 8 BUN 14 Creatinine 0.88 Estimated GFR 83 L POC Glucose Random Glucose 111 H Calcium 8.5 Magnesium 2.1 MTS Gel Crossmatch See Detail 01/03/18 01/03/18 08:02 11:56 WBC RBC Hgb Hct MCV MCH MCHC RDW Plt Count MPV Sodium Potassium Chloride Carbon Dioxide Anion Gap BUN Creatinine Estimated GFR POC Glucose 119 H 108 Random Glucose Calcium Magnesium MTS Gel Crossmatch Result Diagrams: 01/03/18 03:48 01/03/18 03:48 - Plan (1) CAD (coronary artery disease), [place] coronary artery (2) S/P CABG x 3 Plan: ASA, statin , plavix amiodarone and BB pulm toileting OOB/ ambulate chest tube dc without difficulty (3) Hyperlipidemia Plan: on statin (4) Hypertension Plan: hold Norvasc for now (1) CAD (coronary artery disease), [place] coronary artery Qualifiers: [place] vs. transplanted heart: [place] heart (3) Hyperlipidemia Qualifiers: Hyperlipidemia type: mixed hyperlipidemia Qualified Code(s): E78.2 - Mixed hyperlipidemia (4) Hypertension Qualifiers: Hypertension type: essential hypertension Qualified Code(s): I10 - Essential (primary) hypertension
[2018-01-03] MEDS: Polyethylene Glycol 3350 17 GM Packet PO SCH (15:00)
[2018-01-03] MEDS ORDERED: Amiodarone Inj 150 MG in Dextrose 5% in Water Inj 97 ML IV.SIG ONE ×2 (16:00)
[2018-01-04] MEDS: amLODIPine 10 MG Tablet PO SCH (01:49)
[2018-01-04] MEDS: LORazepam 0.5 MG Tablet PO PRN (06:40)
[2018-01-04] MEDS: Amiodarone 200 MG Tablet PO SCH ×2 (08:48→20:24)
[2018-01-04] MEDS: Multivitamin/Minerals Therapeutic Tablet PO SCH (08:48)
[2018-01-04] MEDS: Docusate Sodium 100 MG Capsule PO SCH ×2 (08:48→20:40)
[2018-01-04] MEDS: Finasteride 5 MG Tablet PO SCH (08:48)
[2018-01-04] MEDS: Metoprolol Tartrate 25 MG Tablet PO SCH ×2 (08:49→20:40)
[2018-01-04] MEDS: Hydroxychloroquine 200 MG Tablet PO SCH (08:49)
--- NOTE | 2018-01-04 11:24 | P.DS ---
Date of admission: 12/31/17 05:40 Primary care physician: Rikki Oseguera MD Attending physician on discharge: Jun Carbone Anticipated date of discharge: 01/04/18 Brief History from admission: 82-year-old male, initially seen 12/19/[address] Rikki Oseguera, Dr. Jorge Alberto Sr, has history of chest discomfort, complaining of some shortness of breath, also fatigue. The patient was electively brought in for heart catheterization which showed an ejection fraction of 60%. He had proximal LAD stenosis of 70%, mid-distal LAD 90%, the PDA was 100% with left to right collaterals. PAST MEDICAL HISTORY: Includes coronary artery disease of [place] coronaries, dyspnea on exertion, hyperlipidemia, essential hypertension, sleep apnea, but had declined CPAP in the past. DS: Diagnosis - Discharge Diagnosis (1) Dyspnea on exertion Status: Acute Diagnosis: Principal (2) CAD (coronary artery disease), [place] coronary artery Status: Acute Diagnosis: Principal (3) S/P CABG x 3 Status: Acute Diagnosis: Principal (4) Hyperlipidemia Status: Acute Diagnosis: Secondary (5) Hypertension Status: Acute Diagnosis: Secondary DS: Medications - Discharge Medications Prescriptions: hydrocodone-acetaminophen 1 tab PO Q3H PRN #30 tab PRN Reason: Pain Scale 1 To 5 DS: Summary Hospital Course: 12/31 pt electively admitted 1. Off-pump Coronary Artery Bypass Grafting x 3 with Left Internal Mammary Artery (LEDBETTER) to Left Anterior Descending (LAD), reverse saphenous vein graft to diagonal 1 branch of the LAD, reverse saphenous vein graft to the diagonal to branch of the LAD 2. Left leg Endoscopic Vein [place] 3. Intraoperative Vein Mapping 4. Lysis of lung adhesions. extubated after surgery crystalloid 3000cc, 100cc EBL 01/01 pt has some bradycardia last pm , also some hypotension requiring Dopamine BB , amiodarone dc , HR now 60's . currently weaned off dopamine on nasal cannula 6 liters needs aggressive pulm toileting eval for transfer to stepdown later today 01/02 pt went into Afib RVR last night / now back in NSR amio gtt/ will change to po K+ replaced, still on 4 liters 02 chest tube dc without difficulty some leukocytosis / continue pulm toileting gentle diuresis 01/03 Clinically and hemodynamically doing well On room air Recurrent atrial fibrillation. Will rebolus with amiodarone and 24 hour drip May need Coumadin if atrial fibrillation persists Discharge planning 01/04/18 Converted to sinus rhythm, ready for transfer to SNF - Time Spent with Patient Total time spent providing and/or coordinating discharge services: Greater than 30 minutes - Quality: AMI Clinical Trial Participant: No - Quality: VTE Deep Vein Thrombosis/Pulmonary Embolism Present on Admission: No Exam Vital signs: Vital Signs 01/03/18 12:00 01/03/18 13:00 01/03/18 14:00 Temperature Pulse Rate 94 H 91 H 89 Respiratory Rate Blood Pressure Pulse Oximetry 01/03/18 15:00 01/03/18 16:00 01/03/18 17:00 Temperature 97.8 F Pulse Rate 91 H 88 77 Respiratory Rate 16 Blood Pressure 129/69 Pulse Oximetry 92 L 01/03/18 19:00 01/03/18 20:00 01/03/18 21:00 Temperature 98.4 F Pulse Rate 73 74 74 Respiratory Rate 18 Blood Pressure 178/72 H Pulse Oximetry 92 L 92 L 01/03/18 22:00 01/03/18 23:00 01/04/18 00:00 Temperature 97.6 F Pulse Rate 72 65 65 Respiratory Rate 18 Blood Pressure 160/71 H Pulse Oximetry 92 L 01/04/18 01:00 01/04/18 02:00 01/04/18 03:00 Temperature 98.1 F Pulse Rate 63 66 66 Respiratory Rate 18 Blood Pressure 146/70 H Pulse Oximetry 93 L 01/04/18 04:00 01/04/18 05:00 01/04/18 06:00 Temperature Pulse Rate 66 66 68 Respiratory Rate Blood Pressure Pulse Oximetry 01/04/18 07:00 Temperature 97.8 F Pulse Rate 68 Respiratory Rate 18 Blood Pressure 148/72 H Pulse Oximetry 97 Intake & Output 01/03/18 01/04/18 01/04/18 18:59 06:59 18:59 Intake Total 2240 / 2240 480 / 480 Output Total 705 / 705 1200 / 1200 Balance 1535 / 1535 -720 / -720 Weight 85.5 kg Intake: Oral 240 / 240 480 / 480 Anesthesia Amount 1999 / 1999 Output: Urine 525 / 525 1200 / 1200 Estimated Blood Loss 100 / 100 Chest Tube Drainage 80 / 80 #2 Mediastinal 80 / 80 Other: Mode Setting Midline Chest Continuous Intermittent Date of Last Bowel Movement 01/03/18 01/03/18 01/03/18 # Bowel Movements 0 - Constitutional no acute distress - Routine HEENT Exam Head: Present: normocephalic, atraumatic Eye: Present: EOMI, PERRL, normal accommodation ENT: Present: mucous membranes moist - Routine Neck Exam Present: supple - Routine Respiratory Exam Present: CTA bilaterally - Routine Cardiovascular Exam Present: RRR - Routine Abdominal Exam Present: soft, normoactive bowel sounds - Routine Extremities Exam Present: pulses intact - Routine Skin Exam Present: intact - Routine Neurological Exam Present: alert, oriented X3 Results Procedures completed during hospitalization: CABG x 3 Labs on day of discharge: Labs from last 24 hours 01/04/18 01/03/18 01/03/18 07:43 21:31 17:42 POC Glucose 102 116 H 146 H 01/03/18 11:56 POC Glucose 108 - Impressions ITS Impressions Chest X-Ray 01/03/18 06:00 CONCLUSION: 1. Interval removal of the left-sided thoracostomy tube and mediastinal drain. No pneumothorax. 2. Persistent left basilar airspace consolidation appears slightly worse when compared to the prior. 3. Degenerative changes in both shoulders. Discharge Plan - Discharge Disposition Patient Disposition: 03 Discharge to SNF - Discharge Condition Condition: Good - Discharge Order Discharge Orders: Discharge Order (Routine); Ordered 01/04/18 Ordered By: Tami Bustos - Discharge Details Anticipated Discharge Date: 01/04/18 - Physicians Team Primary Care Provider: Rikki Oseguera Attending Provider: Jun Carbone Other Providers: Jorge Alberto Sr MD ; [employer] ; [employer] ; [facility] ; [facility] - Rxs /Orders / Referrals /Forms Prescriptions: New amiodarone 200 mg Tablet 200 mg PO Q12HR 14 Days RF: 0 clopidogrel [Plavix] 75 mg Tablet 75 mg PO DAILY RF: 0 hydrocodone-acetaminophen 5-325 mg Tablet 1 tab PO Q3H PRN (Reason: Pain Scale 1 To 5) Qty: 30 RF: 0 pilofbzh-jkat-NZ-calcium-mins [Thera M Plus (ferrous fumarat)] 9 mg iron-400 mcg Tablet 1 tab PO DAILY RF: 0 pantoprazole 40 mg Tablet,Delayed Release (Dr/Ec) 40 mg PO DAILY@06 Qty: 14 RF: 0 Continue amlodipine 10 mg Tablet 10 mg PO DAILY aspirin 81 mg Tablet,Delayed Release (Dr/Ec) 81 mg PO DAILY Qty: 90 RF: 3 atorvastatin 40 mg Tablet 40 mg PO DAILY docusate sodium [Dulcolax Stool Softener (dss)] 100 mg Capsule 100 mg PO DAILY escitalopram oxalate 20 mg Tablet 20 mg PO DAILY finasteride 5 mg Tablet 5 mg PO DAILY hydroxychloroquine 200 mg Tablet 200 mg PO DAILY metoprolol succinate 50 mg tablet extended release 24 hr 50 mg PO BID multivitamin Capsule 1 cap PO DAILY Discontinued isosorbide mononitrate 60 mg tablet extended release 24 hr 60 mg PO DAILY@0700 Referrals: Rikki Oseguera MD [Primary Care Provider] - See Instructions ( Your appointment has been scheduled for [01/27/18] at [1:00 pm] If you cannot make this appointment, please call the office to reschedule ) Ina Persaud [ADVANCE RN PRACTITIONER] - See Instructions ( Your appointment has been scheduled for [01/28/18] at [10:45 am] If you cannot make this appointment, please call the office to reschedule ) Jorge Alberto Sr MD [Physician] - See Instructions ( Your appointment has been scheduled for [02/11/18] at [12:15 pm] If you cannot make this appointment, please call the office to reschedule ) - Discharge Instructions Patient Printed Instructions: Heart Healthy Diet (DC), Acute Wound Care (DC), Sternal Precautions (GEN), Coronary Artery Bypass Graft (DC) Additional Instructions: PREVENA Single Use Negative Wound Therapy System Caregiver Instruction Sheet 1. A Prevena dressing system was applied to the chest incision during surgery , to promote wound healing. It works via a suction device (negative pressure wound therapy) to remove low to moderate levels of exudate (drainage) and infectious materials. We recommend that the device stay in place for up to seven days, from day of surgery. 2. Day of Surgery__12/31/17 Day of Removal 01/07/18 3. The dressing should only be removed by a health personal care worker. Please arrange removal of device to coincide with Home Health visit and or with Nursing staff at Rehab 4. If skin reddening or irritation of skin occurs, or excessive drainage, please notify the Cardiovascular Surgeons office at [phone]. 5. Light showering is permissible; however the pump should be disconnected and placed in safe location, where it will not get wet. The dressing should not be exposed to direct spray or submerged in water. No bath tub / shower only. Ensure the end of the tubing attached to the dressing is facing down so that water does not enter the top of the tube. 6. To remove Prevena dressing: press purple button to turn off device / remove the suction. Then disconnect the tubing from the pump. The fixation strips should be stretched away from the skin and the dressing lifted at one corner and peeled back until it has been fully removed. 7. After removal, it is ok to shower daily using liquid dial soap and clean wash cloth, rinse and pat dry, and leave incision open to air dry. For any concerns regarding Prevena dressing, and or wounds, please contact Rosamaria Mcrae, patient navigator at [phone] or notify the Cardiovascular Surgeons office at [phone]. Incentive spirometry Q1 hr x 10, while awake, also use acapella device hourly whole awake Sternal Breast Bone Precautions: NO pushing or pulling, ( pt must use sternal pillow to support chest with all activities and with coughing ( takes up to 3 months breast bone to heal ) Daily incision care: ok to shower daily, no tub bath. Wash all incisions with liquid dial soap, clean wash cloth to each site, rinse and pat dry. Observe for any signs of infection, such as drainage which is dark yellow, ruiz, green or foul smelling. Immediately report to the surgeon any drainage from the chest incision, or legs, and for any abnormal drainage from the chest tube sites. Notify surgeon if any temp >101.5 degrees F. When specialty dressing removed/ or if you do not have one, continue to shower daily as above, then rinse and pat incision dry and paint with betadine daily x 5 days. Allow steri strips to fall off if you have any. Avoid lotions, creams, salves, oils, etc. for the first month Please see attached forms for additional instructions regarding post Open Heart specialty wound vacuum dressings. KENYON or Prevena , Dressing to be removed by Nursing staff on ___01/07/18____ F/U appointment: as per DC instructions: PCP in 2 weeks, CV surgeon 2 weeks, Serologist 3-4 weeks For any questions regarding incisions/ dressing / meds / post op care or above Symptoms, Saturday 8am-5pm Heart & Vascular Surgery Office ( Dr. Carbone & Dr. Bustos), After Hours / Nights (5pm -8am) Weekends and Holidays Please call [facility] Cardiac Inter[facility] Unit (CIC) Charge Nurse - Post Discharge Care Plan Care Plan Goals: Discharge Care Plan Goals for Coronary Artery Bypass Surgery You have had Coronary Artery Bypass Graft Surgery (also called CABG, gillian mehta). This surgery created new pathways around blocked parts of your heart s blood vessels, allowing blood to reach your heart muscle. Directions to Meet your Goals: 1. Pain Relief: You will recover faster after surgery if your pain is kept under control: * Take pain medicine as directed by your doctor. * Dont be surprised if you feel sharp pains as your breastbone heals or if you have soreness in your incision during changes in weather. * Tell your doctor if you have questions about what youre feeling, if your medicines dont reduce your pain, or if you suddenly feel worse. 2. Activity: * Dont drive until your doctor says its OK. And never drive while taking opioid pain medicine. * Ask someone to stand nearby while you shower or do other activities, just in case you need help. * Weigh yourself every day, at the same time of day, and in the same kind of clothes. Quick weight gain can be a sign of a problem that needs your doctor's attention. * Follow your doctor's more specific weight restrictions. Dont lift anything heavier than 5 pounds. * Until approved by doctor, avoid mowing the lawn, vacuuming, driving, and doing other activities that could strain your breastbone. 3. Diet and Exercise: * Maintain a healthy weight. If needed, get help to loose extra pounds. * Avoid fatty and fried foods. Stick to lean meats, such as chicken or fish. * Cut back on salt: - Limit canned, dried, packaged, and fast foods. - Dont add salt to your food at the table. - Season foods with herbs instead of salt when you cook * Ask your healthcare provider when you can start a walking program: - If you havent already started a walking program in the hospital, begin with short walks (about 5 minutes) at home. Go a little longer each day. - Choose a safe place with a level surface, such as a local park or mall. - Wear supportive shoes to prevent injury to your knees and ankles. - Walk with someone. Its more fun and helps you stay with it. 4. Prevent Falls/Injury: * If you are unstable on your feet, remember to ask for help from others. * Avoid using very hot water while showering. It can affect your circulation and make you dizzy. * Free up your hands so that you can use them to keep balance. Use a josh pack , apron, or pockets to carry things. * Arrange your household to keep the items you need handy. Keep everything else out of the way. * Remove items that may cause you to fall, such as throw rugs and electrical cords. * Use nonslip bath mats, grab bars, an elevated toilet seat, and a shower chair in your bathroom * Sit on a shower stool or chair when you shower to keep from falling. 5. Incision Care: Healing takes several weeks. * Check your incision daily for redness, swelling, tenderness, or drainage. * Prevent infection by washing your hands often. If an infection occurs, it will need to be treated right away. * Call your doctor right away if you think you may have an infection. Symptoms include a fever or an incision that leaks white, green, or yellow fluid. * Don't soak your incision in water until your doctor says its OK. This means no hot tubs, bathtubs, or swimming pools. * Follow your doctor's instructions for changing the dressing. * Dont rub the incision, or apply creams or lotions to it. 6. Follow-Up: Do Not miss your follow-up appointment. Keep up with all your appointments and yearly check ups When to call your doctor: Call your doctor right away if you have: Chest pain or a return of the heart symptoms you had before your surgery Fever of 100.4F (38C) or higher, or as directed by your doctor Signs of infection (redness, swelling, drainage, or warmth) at the incision site Shortness of breath Fainting Weight gain of more than 3 pounds in 1 day, more than 5 pounds in 1 week, or whatever weight gain you were told to report by your doctor New or increased swelling in your hands, feet, or ankles Unrelieved pain at the incision site(s) Changes in the location, type, or severity of pain Fast or irregular pulse Persistent abdominal pain Nausea Trouble urinating Any unusual bleeding Call 911: Call 911 right away if you have: Sudden onset of chest pain that is not relieved by medications Shortness of breath
[2018-01-04] MEDS: Polyethylene Glycol 3350 17 GM Packet PO SCH (14:11)
[2018-01-04] MEDS: Insulin NovoLOG Aspart Correctional Sugar Inj SQ SCH ×3 (16:40→20:44)
[2018-01-05] MEDS: Insulin NovoLOG Aspart Correctional Sugar Inj SQ SCH ×2 (08:29→13:34)
[2018-01-05] MEDS: Multivitamin/Minerals Therapeutic Tablet PO SCH (09:12)
[2018-01-05] MEDS: Docusate Sodium 100 MG Capsule PO SCH (09:12)
[2018-01-05] MEDS: amLODIPine 10 MG Tablet PO SCH (09:12)
[2018-01-05] MEDS: Amiodarone 200 MG Tablet PO SCH (09:13)
[2018-01-05] MEDS: Metoprolol Tartrate 25 MG Tablet PO SCH (09:14)
[2018-01-05] MEDS: Finasteride 5 MG Tablet PO SCH (09:14)
[2018-01-05] MEDS: Hydroxychloroquine 200 MG Tablet PO SCH (09:14)
[2018-01-05] MEDS: Polyethylene Glycol 3350 17 GM Packet PO SCH (09:19)
--- NOTE | 2018-01-05 12:06 | P.PNCV ---
- Note CVT: Post Op Day #: 5 Subjective/Hospital Course: 82-year-old male, initially seen 12/19/[address] Rikki Oseguera, Dr. Jorge Alberto Sr, has history of chest discomfort, complaining of some shortness of breath, also fatigue. The patient was electively brought in for heart catheterization which showed an ejection fraction of 60%. He had proximal LAD stenosis of 70%, mid-distal LAD 90%, the PDA was 100% with left to right collaterals. PAST MEDICAL HISTORY: Includes coronary artery disease of [place] coronaries, dyspnea on exertion, hyperlipidemia, essential hypertension, sleep apnea, but had declined CPAP in the past. 12/31 pt electively admitted 1. Off-pump Coronary Artery Bypass Grafting x 3 with Left Internal Mammary Artery (LEDBETTER) to Left Anterior Descending (LAD), reverse saphenous vein graft to diagonal 1 branch of the LAD, reverse saphenous vein graft to the diagonal to branch of the LAD 2. Left leg Endoscopic Vein [place] 3. Intraoperative Vein Mapping 4. Lysis of lung adhesions. extubated after surgery crystalloid 3000cc, 100cc EBL 01/01 pt has some bradycardia last pm , also some hypotension requiring Dopamine BB , amiodarone dc , HR now 60's . currently weaned off dopamine on nasal cannula 6 liters needs aggressive pulm toileting eval for transfer to stepdown later today 01/02 pt went into Afib RVR last night / now back in NSR amio gtt/ will change to po K+ replaced, still on 4 liters 02 chest tube dc without difficulty some leukocytosis / continue pulm toileting gentle diuresis 01/03 Clinically and hemodynamically doing well On room air Recurrent atrial fibrillation. Will rebolus with amiodarone and 24 hour drip May need Coumadin if atrial fibrillation persists Discharge planning 01/05/18 Patient was to be discharged yesterday, but waiting transfer to SNF. Objective: Vital Signs - 24 hr 01/04/18 13:00 01/04/18 14:00 01/04/18 15:00 Temperature 98 F Pulse Rate 66 68 60 Respiratory Rate 16 Blood Pressure 148/74 H Pulse Oximetry 92 L 01/04/18 15:30 01/04/18 16:00 01/04/18 17:00 Temperature Pulse Rate 62 64 Respiratory Rate Blood Pressure Pulse Oximetry 93 L 01/04/18 17:27 01/04/18 19:00 01/04/18 20:00 Temperature 98.4 F Pulse Rate 67 68 62 Respiratory Rate 16 Blood Pressure 176/81 H Pulse Oximetry 96 96 01/04/18 21:00 01/04/18 22:00 01/04/18 23:00 Temperature 97.4 F L Pulse Rate 62 68 61 Respiratory Rate 16 Blood Pressure 167/78 H Pulse Oximetry 98 94 L 01/04/18 23:59 01/05/18 01:00 01/05/18 01:10 Temperature Pulse Rate 60 61 61 Respiratory Rate Blood Pressure Pulse Oximetry 01/05/18 03:00 01/05/18 04:00 01/05/18 05:00 Temperature 97.4 F L Pulse Rate 59 L 57 L 58 L Respiratory Rate 16 Blood Pressure 177/80 H Pulse Oximetry 93 L 01/05/18 06:00 01/05/18 07:00 01/05/18 08:00 Temperature 97.7 F Pulse Rate 59 L 55 L 78 Respiratory Rate 18 Blood Pressure 136/70 Pulse Oximetry 97 01/05/18 08:33 01/05/18 09:00 01/05/18 10:00 Temperature Pulse Rate 70 58 L Respiratory Rate Blood Pressure Pulse Oximetry 94 L Labs: Laboratory Results - last 12 hr 01/05/18 01/05/18 07:59 12:02 POC Glucose 101 103 Result Diagrams: 01/03/18 03:48 01/03/18 03:48 Cardiovascular: RRr Pulmonary: CTA GI/: NABS Incision: dry and intact - Plan (2) CAD (coronary artery disease), [place] coronary artery (3) S/P CABG x 3 Plan: ASA, statin , plavix amiodarone and BB pulm toileting OOB/ ambulate chest tube dc without difficulty (4) Hyperlipidemia Plan: on statin (5) Hypertension Plan: hold Norvasc for now awaiting placement/case management disposition (2) CAD (coronary artery disease), [place] coronary artery Qualifiers: [place] vs. transplanted heart: [place] heart (4) Hyperlipidemia Qualifiers: Hyperlipidemia type: mixed hyperlipidemia Qualified Code(s): E78.2 - Mixed hyperlipidemia (5) Hypertension Qualifiers: Hypertension type: essential hypertension Qualified Code(s): I10 - Essential (primary) hypertension
== END 2018-01-05 16:50 | disposition home health service (06) ==
LOC: HSDI 05:40 → HCVI 12:00 → HCPC 01-01 11:59
PROVIDERS: ADMIT Thoracic Surgery (Cardiothoracic Vascular Surgery); ATTEND Thoracic Surgery (Cardiothoracic Vascular Surgery)